=== PATIENT | female | born 1990 | race Caucasian/White ===

== ENCOUNTER 2021-06-06 07:34 | Outpatient (REF) | payer OTHER, SELFPAY ==
[2021-06-06 11:53] LABS: MANUAL DIFF FLAG NO
[2021-06-06 11:54] LABS: Basophils Absolute Auto 0.1 X10*3/uL (0.0-0.2); Basophils Percent Auto 0.9 % (0-2); Eosinophils Absolute Auto 0.3 X10*3/uL (0.0-0.4); Eosinophils Percent Auto 3.7 % (0-4); Hematocrit 39.7 % (37-47); Hemoglobin 12.9 g/dl (12.0-16.0); Imm Gran Abs Auto 0.02 X10*3/uL (0.00-0.03); Imm Gran Pct Auto 0.3 % (0.0-0.4); Lymphocytes Absolute Auto 2.9 X10*3/uL (1.2-4.9); Lymphocytes Percent Auto 41.4 % (20-40); Mean Corpuscular HGB Conc 32.5 g/dl (31.0-35.0); Mean Corpuscular Hemoglobin 29.2 pg (27.0-33.0); Mean Corpuscular Volume 89.8 fL (80-98); Mean Platelet Volume 10.5 fL (9.4-12.3); Monocytes Absolute Auto 0.6 X10*3/uL (0.1-1.2); Monocytes Percent Auto 7.9 % (2-11); Neutrophils Absolute Auto 3.2 X10*3/uL (2.0-8.3); Neutrophils Percent Auto 45.8 % (45-73); Platelet Count 355 X10*3/uL (160-400); Red Blood Count 4.42 X10*6/uL (4.20-5.50); Red Cell Distribution Width 13.3 % (11.0-16.0)
[2021-06-06 12:20] LABS: Alanine Aminotransferase 11 U/L (0-31); Albumin Level 4.3 g/dL (3.5-5.0); Alkaline Phosphatase 67 U/L (39-117); Anion Gap 14 (12-20); Aspartate Amino Transferase 18 U/L (5-31); Bilirubin Total 0.6 mg/dL (0.0-1.0); Blood Urea Nitrogen 11 mg/dL (9-16); Calcium 9.4 mg/dL (8.4-10.2); Carbon Dioxide 24 mmol/L (22-29); Chloride 105 mmol/L (96-108); Cholesterol 184 mg/dL; Estimated Glomerular Filt Rate > 60; Glucose Fasting 79 mg/dL (60-99); HDL Cholesterol 52 mg/dL; LDL Cholesterol Calculated 95 mg/dl; Potassium 4.3 mmol/L (3.3-5.1); Sodium 139 mmol/L (135-145); Total Protein 7.5 g/dL (6.5-8.0); Triglycerides 185 mg/dL
[2021-06-06 12:43] LABS: TSH reflex Free T4 1.85 uIU/mL (0.32-4.0)
[2021-06-11 13:41] LABS: Vitamin D 25-OH, D2 <4 ng/mL; Vitamin D 25-OH, D3 31 ng/mL; Vitamin D 25-OH, Total 31 ng/mL (30-100)
== END 2021-06-06 07:35 | disposition home or self-care (01) ==
LOC: HO.HMGCLDS 07:34
PROVIDERS: PCP Internal Medicine; Visit Provider Internal Medicine
DX: E66.9 Obesity, unspecified (principal); E78.5 Hyperlipidemia, unspecified; E55.9 Vitamin D deficiency, unspecified
CPT/HCPCS: 36415; 80053; 80061; 82306; 84443; 85025

== ENCOUNTER 2021-07-06 14:07 | Outpatient (REF) | payer OTHER, SELFPAY ==
--- NOTE | ~2021-07-06 | US_ITS ---
EXAMINATION: US PELVIC AND TRANSVAGINAL CLINICAL INFORMATION: Pelvic pain. COMPARISON: None TECHNIQUE: Transabdominal and transvaginal pelvic ultrasound. Real-time imaging by the senior biostatistician/group leader. FINDINGS: The uterus is 9.5 x 3.7 x 4.8 cm, retroverted, retroflexed. The endometrial thickness is measured by the senior biostatistician/group leader at 1 cm. The right ovary is 3.8 x 2 x 2.6 cm, volume 10 mL. Simple-appearing cyst 1.6 x 1.6 x 1.1 cm is noted. The left ovary is 2.4 x 1.3 x 1.7 cm. No suspicious finding. Small follicles are noted. The ovarian vascularity is within normal limits. There is no free fluid. US/US pelvic and transvaginal IMPRESSION: Endometrial thickness 1 cm may be normal for mid to late phase of the cycle in this young patient. Small, simple-appearing 1.6 cm cyst associated with the right ovary.
== END 2021-07-06 14:08 | disposition home or self-care (01) ==
LOC: HO.HMGCX 14:07
PROVIDERS: PCP Internal Medicine; Visit Provider Internal Medicine
DX: R10.2 Pelvic and perineal pain (principal)
CPT/HCPCS: 76830; 76856

== ENCOUNTER 2022-02-24 18:44 | Outpatient (REF) | payer OTHER, SELFPAY ==
--- NOTE | ~2022-02-24 | MR_ITS ---
EXAMINATION: MR BRAIN WITHOUT CONTRAST CLINICAL INFORMATION: Migraines. COMPARISON: None. TECHNIQUE: Multiplanar, multisequence imaging of the brain was performed without contrast. FINDINGS: No diffusion abnormalities are identified to suggest an acute or subacute infarct. The ventricles are normal in size. No mass effect or midline shift is seen. No brain parenchymal signal abnormality is noted. No extra-axial fluid collections are seen. The brainstem and cerebellum are normal. The gradient refocused acquisition is normal. The craniovertebral junction, marrow signal, and midline structures are normal. The major intracranial flow voids at the level of the [place] of [place] are preserved. The dural venous sinus flow voids are maintained. The mastoid air cells and paranasal sinuses are well aerated. MR/MR head/brain wo con IMPRESSION: Normal MRI of the brain. No acute process.
== END 2022-02-24 18:45 | disposition home or self-care (01) ==
LOC: HO.MRI 18:44
PROVIDERS: PCP Internal Medicine; Visit Provider Internal Medicine
DX: G43.909 Migraine, unspecified, not intractable, without status migrainosus (principal)
CPT/HCPCS: 70551

== ENCOUNTER 2023-01-14 13:53 | Outpatient (REF) | payer OTHER, SELFPAY ==
[2023-01-14 17:37] LABS: Erythrocyte Sedimentation Rate 16 MM/HR (0-20)
== END 2023-01-14 13:54 | disposition home or self-care (01) ==
LOC: HO.HMGCLDS 13:53
PROVIDERS: PCP Internal Medicine; Visit Provider Internal Medicine
DX: H57.10 Ocular pain, unspecified eye (principal)
CPT/HCPCS: 36415; 85652

== ENCOUNTER 2023-02-04 16:34 | Outpatient (REF) | payer OTHER, SELFPAY ==
--- NOTE | ~2023-02-04 | XR_ITS ---
EXAMINATION: XR CERVICAL SPINE CLINICAL INFORMATION: 32-year-old female patient with myalgias of the neck. COMPARISON: None TECHNIQUE: 6 views of the cervical spine, inclusive of flexion and extension views, were obtained. FINDINGS: The vertebral alignment is normal. No intrinsic bony abnormality. The disc heights and neural foramina are well maintained. The endplates and posterior elements are normal. No fracture or subluxation. The surrounding prevertebral soft tissues are unremarkable. XR/XR cervical spine 5V IMPRESSION: Unremarkable examination.
== END 2023-02-04 16:35 | disposition home or self-care (01) ==
LOC: HO.XRAY 16:34
PROVIDERS: PCP Internal Medicine; Visit Provider Student in an Organized Health Care Education/Training Program
DX: M79.12 Myalgia of auxiliary muscles, head and neck (principal)
CPT/HCPCS: 72050

== ENCOUNTER 2023-02-18 13:22 | Outpatient (REF) | payer OTHER, SELFPAY ==
--- NOTE | ~2023-02-18 | MM_ITS ---
EXAMINATION: MM DIAGNOSTIC DIGITAL BREAST TOMOSYNTHESIS, BILATERAL Targeted right breast ultrasound. CLINICAL INFORMATION: Right breast pain for one week upper outer quadrant. Patient had one week of antibiotics finishing yesterday to treat possible mastitis. Pain has improved but has not gone away. Initially patient had small region of inflamed skin which has gone away since on the antibiotics. The lifetime risk of breast cancer based on the Tyrer-Cuzick Model is 11.7%. COMPARISON: Mammography: None TECHNIQUE: Digital breast tomosynthesis is performed in both the craniocaudal and mediolateral oblique views along with computer-aided detection (CAD). Synthesized 2D images are generated from the tomosynthesis. Additional spot magnification views of the right breast in craniocaudal and 90 degree mediolateral views performed. FINDINGS: The breasts are heterogeneously dense, which may obscure small masses (ACR BI-RADS breast composition Category c). There is multiplicity and bilaterality of calcifications right greater than left. There are some focally more dense parenchyma within the right breast in the upper outer quadrant in region of patient's pain. There is also increase in number of calcifications in this location. No suspicious left breast masses or grouping of calcifications identified. Magnification views of the right breast demonstrates some of the calcifications to appear to change in appearance from punctate and rounded on craniocaudal projection to a few being more linear on 90 degree mediolateral view which may represent milk of calcium and microcysts, however this is not seen in all of the calcifications. Ultrasound evaluation of the right breast in region of pain did not demonstrate any abnormal cystic or solid masses. No region of abnormal distal sound shadowing was appreciated. No definite edematous change within the parenchyma is seen. No abscess noted. There is a hypoechoic well-circumscribed cystic-appearing lesion 9 o'clock position in region where patient says that there was redness previously. This measures approximately 8 x 3 x 5 mm in size with smooth back wall and increased through sound transmission. The lesion is wider than it is tall. No internal vascularity is present. Results are discussed with the patient at time of visit. MM/MM tomosynthesis diagnostic BI IMPRESSION: Region of increased density as well as calcifications upper outer aspect of the right breast with some calcifications appearing to change morphology between craniocaudal and 90 degree mediolateral views. Patient states that the redness on the skin and pain has improved but not gone away. Sometimes mastitis can cause calcifications to develop. Recommend 6 month follow-up right breast mammography including magnification views. ASSESSMENT: BI-RADS 3: Probably Benign RECOMMENDATION: Diagnostic mammography in 6 months. This patient's information was entered into a reminder system with a target due date for their next mammogram.
== END 2023-02-18 13:23 | disposition home or self-care (01) ==
LOC: HO.MAMMO 13:22
PROVIDERS: Visit Provider Internal Medicine
DX: N61.0 Mastitis without abscess (principal)
CPT/HCPCS: 76642; 77062; 77066

== ENCOUNTER 2023-03-19 09:31 | Outpatient (REF) | payer OTHER, SELFPAY ==
[2023-03-19 11:20] LABS: Alanine Aminotransferase 9 U/L (0-31); Albumin Level 4.3 g/dL (3.5-5.0); Alkaline Phosphatase 69 U/L (39-117); Anion Gap 11 (12-20); Aspartate Amino Transferase 13 U/L (5-31); Bilirubin Total 0.8 mg/dL (0.0-1.0); Blood Urea Nitrogen 14 mg/dL (9-16); Calcium 9.2 mg/dL (8.4-10.2); Carbon Dioxide 26 mmol/L (22-29); Chloride 107 mmol/L (96-108); Cholesterol 193 mg/dL; Estimated Glomerular Filt Rate > 60; Glucose Fasting 84 mg/dL (60-99); HDL Cholesterol 50 mg/dL; LDL Cholesterol Calculated 124 mg/dl; Potassium 4.4 mmol/L (3.3-5.1); Sodium 140 mmol/L (135-145); Total Protein 7.1 g/dL (6.5-8.0); Triglycerides 96 mg/dL
[2023-03-19 11:38] LABS: Thyroid Stimulating Hormone 1.13 uIU/mL (0.32-4.0)
== END 2023-03-19 09:32 | disposition home or self-care (01) ==
LOC: HO.LAB 09:31
PROVIDERS: PCP Internal Medicine; Visit Provider Internal Medicine
DX: Z00.00 Encounter for general adult medical examination without abnormal findings (principal); E66.9 Obesity, unspecified
CPT/HCPCS: 36415; 80053; 80061; 84443

== ENCOUNTER 2023-07-07 16:39 | Outpatient (AMB) | payer OTHER, SELFPAY ==
[2023-07-07 17:02] VITALS: BP 122/88; PULSE 75; O2SAT 96; BMI 35.2
--- NOTE | 2023-07-07 17:02 | MHC.PC.OV ---
Vital Signs 07/07/23 17:02 Height 5 ft Weight 180 lb 8 oz BMI 35.2 BP 122/88 Blood Pressure Location Lt brachial Position Sitting Pulse 75 Pulse Source Pulse Oximeter Pulse Oximetry (%) 96 Intake Visit Reasons: Continuous right breast pain Intake Note: Pt is here for right breast pain with discharge since last month. Right knee pain for one month as well. Contact Lens Assistant Required: No Accompanied by: Self / Same As Patient Allergies Sulfa (Sulfonamide Antibiotics) Allergy (Intermediate, Verified 07/07/23 17:08) hives topiramate Adverse Reaction (Intermediate, Verified 07/07/23 17:08) eye changes Medication List - Last Reconciled 07/07/23 by Tami Brown MD sumatriptan succinate 50 mg PO Q2-4H PRN 30 days Tobacco use date assessed: 02/17/23 Dental Screening Dental Screen Date: 07/07/23 Did you have a dental visit in the last 12 months?: Yes Did you have a dental problem in the last 6 months where you did not have access to dental care?: No Was dental information given to patient?: Patient has dentist HPI HPI Comments History of Present Illness Details This is a 32-year-old female with migraines that complains of right knee pain and right breast pain with discharge that started about 2 months ago. She denies any knee injury and knee pain has progressively worsened for the past few weeks. She also has breast pain associated with her menstrual periods and she does not male the color of the breast discharge from the right breast. She denies any visual field deficit. Migraines stable with sumatriptan as needed. [facility] Medical History (Updated 07/07/23 @ 17:14 by Tami Brown MD) Acne Immunization due Migraines Obese Pelvic pain in female Physical exam Surgical History History of wisdom tooth extraction Family History Father History of mitral valve repair Mother Hypothyroid Maternal Grandmother Diabetes Hypertension Paternal Grandfather CVD (cardiovascular disease) Brother In good health Brother In good health Sister In good health Son In good health Social History Housing: Apartment Alcohol intake: never Patient Tobacco Use Status: Never used Tobacco e-Cigarette/Vaping Use: Never Used Second Hand Smoke Exposure: No service: No Current occupational status: employed Current occupational exposures/hazards: No Cognitive needs: No Hearing needs: No Vision needs: No Questionnaire Thrive Questionnaire Date Thrive assessed: 02/17/23 HERNÁN-7 AMB Questionnaire HERNÁN-7 Date HERNÁN - 7 assessed: 02/17/23 Source: Developed by Drs. Aidan Dwyer, Krystle Ma, Abiel Tavera and colleagues, with an educational julio c from [employer]. Review of Systems Const All systems reviewed & are unremarkable except as noted in HPI and below Eyes Reports no additional complaints, Denies change in vision and Denies other visual disturbances Card Denies chest pain at rest, Denies chest pain with activity, Denies edema, Denies irregular heart rhythm, Denies claudication, Denies dyspnea, Denies dyspnea on exertion, Denies orthopnea, Denies paroxysmal nocturnal dyspnea and Denies slow heart rate Resp Denies cough, Denies dyspnea and Denies dyspnea on exertion GI Denies abdominal pain, Denies change in bowel habits, Denies excessive flatus, Denies nausea and Denies vomiting Reports nipple discharge, Denies urinary incontinence, Denies urinary hesitancy and Denies urinary urgency Musc Denies abnormal gait, Denies atrophy, Denies deformity and Denies limited range of motion Skin/Breast Denies bleeding lesions, Denies changing lesions, Reports nipple discharge and Denies rash Neuro Denies abnormal gait and Denies lack of coordination Physical exam (Primary Care) Vital Signs: Last Vital Signs Pulse 75 07/07/23 17:02 BP 122/88 07/07/23 17:02 Pulse Ox 96 07/07/23 17:02 BMI result Body Mass Index 35.2 Tobacco/Smoking Status: Tobacco use Status Tobacco use date assessed 02/17/23 07/07/23 17:06 Patient Tobacco Use Status Never used Tobacco 07/07/23 17:06 e-Cigarette/Vaping Use Never Used 07/07/23 17:06 Thrive Assessment: Date of Thrive Assessment Date Thrive assessed 02/17/23 07/07/23 17:06 Eyes General: appearance normal, both eyes and all related structures Eyelids: Yes eyelids normal Conjunctivae: conjunctivae normal Neck Neck: Yes normal visual inspection and Yes supple Chest Breast/axilla inspection: normal inspection of the breasts and normal inspection of the axillae Breast/axilla palpation: normal palpation of the breasts and normal palpation of the axillae Resp Effort & Inspection: normal respiratory effort Auscultation: clear to auscultation bilaterally Cardio Jugular venous distension: no JVD Rate: regular rate Rhythm: regular rhythm Heart sounds: S1 normal heart sound present and S2 normal heart sound present Extrem General: Yes full ROM Assessment and Plan Assessment & Plan (1) Breast discharge: Code(s): N64.52 - Nipple discharge Plan: Prolactin ordered. Has mammogram in August. (2) Right knee pain: Code(s): M25.561 - Pain in right knee Plan: X-ray ordered (3) Migraines: Code(s): G43.909 - Migraine, unspecified, not intractable, without status migrainosus Qualifiers: Migraine type: without aura Status migrainosus presence: without status migrainosus Intractability: not intractable Qualified Code(s): G43.009 - Migraine without aura, not intractable, without status migrainosus Plan: Continue sumatriptan as needed Orders: Orders XR knee RT 2V 07/07/23 M25.561 - Pain in right knee Prolactin 07/07/23 N64.52 - Nipple discharge PT Evaluation and Treatment 07/07/23 M25.561 - Pain in right knee Coding Level of Care Code Est Pt Level 3 (52771) Diagnoses Breast discharge N64.52 Right knee pain M25.561 Migraines G43.009 Migraine type: without aura Status migrainosus presence: without status migrainosus Intractability: not intractable Time Spent (min) 19
== END 2023-07-07 17:15 | disposition home or self-care (01) ==
PROVIDERS: PCP Internal Medicine; Visit Provider Internal Medicine
DX: N64.52 Nipple discharge (principal); M25.561 Pain in right knee; G43.009 Migraine without aura, not intractable, without status migrainosus
CPT/HCPCS: 99213

== ENCOUNTER 2023-07-12 10:44 | Outpatient (REF) | payer OTHER, SELFPAY ==
--- NOTE | ~2023-07-12 | XR_ITS ---
EXAMINATION: XR KNEE, RIGHT CLINICAL INFORMATION: Right knee pain COMPARISON: None available. TECHNIQUE: Four views of the right knee. FINDINGS: Mild medial knee joint narrowing, otherwise joint spaces are maintained. No fracture or joint effusion. Alignment is anatomic. No abnormal soft tissue calcification. XR/XR knee RT 4V IMPRESSION: No acute bony pathology.
[2023-07-12 14:22] LABS: Thyroid Stimulating Hormone 1.73 uIU/mL (0.32-4.0)
[2023-07-13 09:15] LABS: Prolactin 6.2 ng/mL
== END 2023-07-12 10:45 | disposition home or self-care (01) ==
LOC: HO.HMGCLDS 10:44
PROVIDERS: PCP Internal Medicine; Visit Provider Internal Medicine
DX: M25.561 Pain in right knee (principal); N64.52 Nipple discharge; E66.9 Obesity, unspecified
CPT/HCPCS: 36415; 73564; 84146; 84443

== ENCOUNTER 2023-09-12 09:24 | Outpatient (REF) | payer OTHER, SELFPAY ==
--- NOTE | ~2023-09-12 | US_ITS ---
EXAMINATION: MM DIAGNOSTIC DIGITAL BREAST TOMOSYNTHESIS, RIGHT US BREAST LIMITED, RIGHT MAMMOGRAPHY: CLINICAL INFORMATION: 6 month follow-up right breast calcifications. 32-year-old female. COMPARISON: Mammography: Baseline examination 02/18/2023. TECHNIQUE: Digital breast tomosynthesis is performed in the following views: Full-field digital 3-D right CC and right MLO views, as well as right ML view. In addition, 3-D spot compression right CC view was performed, as well as 2-D spot magnification right CC and ML views. FINDINGS: The breasts are heterogeneously dense, which may obscure small masses (ACR BI-RADS breast composition Category c). There are regional calcifications throughout the dense right breast stroma, the majority of which appear to layer on the mediolateral 90 degree right magnification view, indicating these are most likely benign milk of calcium layering within microcysts. These are essentially stable without significant change from prior examinations. These remain probably benign. In addition, there is a new oval 8 mm low-density circumscribed mass in the right breast, approximately 1:00 axis, 8 cm from the nipple, which will be evaluated by subsequent ultrasound as below. Otherwise, parenchymal pattern is unchanged from the prior exam. No suspicious developing masses, regions of architectural distortion, or suspicious or aggressive change in the appearance of the calcifications. ULTRASOUND: CLINICAL INFORMATION: 6 month follow-up right breast calcifications, with new 8mm low density oval circumscribed mass in the right breast approximately 1:00 axis. COMPARISON: None relevant. Correlation made with mammography same day. TECHNIQUE: Targeted sonographic evaluation right breast was performed using a high frequency linear transducer. Attention to the 1:00 axis was given. Selected archived documentation. FINDINGS: RIGHT BREAST: Within the 1:00 axis of the right breast, 8 cm from the nipple, there is a bilobed 7 x 6 x 3 mm simple cysts, correlating well with the mammographic focus of concern. This is benign. Also in the 1:00 axis, 6 cm from the nipple, there is an additional 6 mm simple cyst, not well seen on mammography but likely within the dense breast stroma. There are no suspicious findings, solid masses, or edema within the soft tissue planes. US/US breast RT limited mamm only IMPRESSION: 1. Probably benign and stable regional calcifications, the majority of which layer on the 90 degree mediolateral view, consistent with milk of calcium. These remain probably benign, and 6 month interval follow-up mammography to include standard magnification views recommended of both breasts. 2. 2 benign cysts as detailed within the right breast at the 1:00 axis, for which no further follow-up recommended. OVERALL ASSESSMENT: Mammography: BI-RADS 3 - Probably benign finding(s) - 6 month follow-up suggested Ultrasound: BI-RADS 3 - Probably benign finding(s) - 6 month follow-up suggested RECOMMENDATION: 6 Month F/U Results were provided to the patient at time of visit by the technologist. This patient's information was entered into a reminder system with a target due date for their next mammogram.
== END 2023-09-12 09:25 | disposition home or self-care (01) ==
LOC: HO.MAMMO 09:24
PROVIDERS: PCP Internal Medicine; Visit Provider Internal Medicine
DX: R92.1 Mammographic calcification found on diagnostic imaging of breast (principal)
CPT/HCPCS: 76642; 77061; 77065

== ENCOUNTER → 2023-09-12 09:30 | Outpatient (BNV) | payer OTHER, SELFPAY | PROVIDERS: PCP Internal Medicine; Visit Provider Radiology Diagnostic Radiology | DX: R92.1 Mammographic calcification found on diagnostic imaging of breast (principal); N63.12 Unspecified lump in the right breast, upper inner quadrant | CPT/HCPCS: 76642; 77061; 77065 ==

== ENCOUNTER 2023-10-27 13:53 | Outpatient (AMB) | payer OTHER, SELFPAY ==
--- NOTE | 2023-10-27 13:59 | A.OFFVIS_ITS ---
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 The patient states that her symptoms have gotten worse over the last year in spite of continued non operative treatments. She has done physical therapy for 12 weeks over the last 6 months as well as for 6 weeks over the last 3 months which aggravated her pain. She states that her right knee will give out several times per day. She has tried Tylenol and anti-inflammatory medicines which gave her minimal relief. Allergies Sulfa (Sulfonamide Antibiotics) Allergy (Intermediate, Verified 10/27/23 14:04) hives topiramate Adverse Reaction (Intermediate, Verified 10/27/23 14:04) eye changes Medication List - Last Reconciled 10/27/23 by Paulo Boo MD sumatriptan succinate 50 mg PO Q2-4H PRN 30 days PFS Medical History Acne Immunization due Migraines Obese Pelvic pain in female Physical exam Surgical History History of wisdom tooth extraction Family History Father History of mitral valve repair Mother Hypothyroid Maternal Grandmother Diabetes Hypertension Paternal Grandfather CVD (cardiovascular disease) Brother In good health Brother In good health Sister In good health Son In good health Social History Housing: Apartment Alcohol intake: never Patient Tobacco Use Status: Never used Tobacco e-Cigarette/Vaping Use: Never Used Second Hand Smoke Exposure: No service: No Current occupational status: employed Current occupational exposures/hazards: No Cognitive needs: No Hearing needs: No Vision needs: No Physical Exam Vital Signs: BMI result Body Mass Index 35.2 Const Other: Well-nourished well-developed very friendly female awake alert and oriented x3 in no acute distress Extrem Other: Bilateral lower extremity examination shows good capillary refill, no skin lesions noted, normal sensation light touch Right knee examination shows a minimal effusion, no crepitus with range of motion, tenderness along her medial joint line, positive Giuliana's test, no instability Results Reviewed Results Reviewed: Standing full weight-bearing x-rays of the patient's right knee show minimal joint space narrowing, no acute bony abnormalities Assessment & Plan Assessment & Plan (1) Right knee pain: Code(s): M25.561 - Pain in right knee Plan Ms. Wasserman presents with right knee pain and mechanical symptoms most likely due to a tear of her medial meniscus. Thus, I will send the patient for an MRI of her right knee for further evaluation. I will see her back once the MRI is completed to discuss the findings and treatment options. I also gave her a prescription for a Medrol Dosepak to help with her symptoms in the meantime. Feel free to call me at any time should questions regarding her orthopedic management arise. Thank you very much for asking me to see this very friendly patient. I spent 22 minutes in reviewing the patient's records and imaging studies, seeing the patient and documenting in the medical record. Orders: Orders MR knee RT wo con Today M25.561 - Pain in right knee Medications: New methylprednisolone (Medrol (Chente)) PO PER PKG DIR 21 ea 0RF Coding Level of Care Code New Pt Level 2 (48295) Diagnoses Right knee pain M25.561
[2023-10-27 14:04] VITALS: BMI 35.2
== END 2023-10-27 14:27 | disposition home or self-care (01) ==
PROVIDERS: PCP Internal Medicine; Visit Provider Orthopaedic Surgery
DX: M25.561 Pain in right knee (principal)
CPT/HCPCS: 99202

== ENCOUNTER → 2023-10-27 13:53 | Outpatient (BNVA) | payer OTHER, SELFPAY | PROVIDERS: PCP Internal Medicine; Visit Provider Orthopaedic Surgery | DX: M25.561 Pain in right knee (principal) | CPT/HCPCS: 99202 ==

== ENCOUNTER 2023-12-30 17:33 | Outpatient (REF) | payer OTHER, SELFPAY ==
--- NOTE | ~2023-12-30 | MR_ITS ---
EXAMINATION: MR KNEE WITHOUT CONTRAST, RIGHT CLINICAL INFORMATION: Right knee pain and swelling. Limited range of motion. COMPARISON: Right knee radiographs dated 07/12/2023. TECHNIQUE: MRI of the knee without contrast was performed using routine sequences on a high-field scanner. FINDINGS: MENISCI: Medial Meniscus: Intact Lateral Meniscus: Intact LIGAMENTS: Cruciate: Intact Collateral: Intact EXTENSOR MECHANISM: Intact ARTICULAR CARTILAGE/BONE: Patellofemoral Compartment: Intact articular cartilage. Medial Compartment: Minimal weightbearing articular cartilage signal heterogeneity. Lateral Compartment: Intact articular cartilage. JOINT FLUID AND BURSAE: Trace joint fluid. Minimal edema within the distal pes anserine bursa which could represent normal variation versus minimal bursitis. Correlate for focal tenderness. MR/MR knee RT wo con IMPRESSION: 1. No acute meniscal or ligamentous injury. 2. Minimal medial compartment arthrosis. 3. Trace joint fluid. Minimal edema within the distal pes anserine bursa which could represent normal variation versus minimal bursitis. Correlate for focal tenderness.
== END 2023-12-30 17:34 | disposition home or self-care (01) ==
LOC: HO.MRI 17:33
PROVIDERS: PCP Internal Medicine; Visit Provider Orthopaedic Surgery
DX: M25.561 Pain in right knee (principal)
CPT/HCPCS: 73721

== ENCOUNTER 2024-01-23 14:38 | Outpatient (AMB) | payer OTHER, SELFPAY ==
[2024-01-23 14:40] VITALS: BMI 35.2
--- NOTE | 2024-01-23 14:40 | MHC.OFFVIS ---
Intake Vital Signs 01/23/24 14:40 Height 5 ft Weight 180 lb BMI 35.2 Intake Visit Reasons: OV - right knee MRI review Intake Note: Rhea is a 33 year old female who presents for an MRI review of her Right knee. The patient describes her discomfort as achy in nature. Most of the discomfort is along the anterior aspect of her knee. The patient did take the Medrol Dosepak which gave her mild relief. She denies any locking or giving way. She has tried topical creams which gave her mild relief. Allergies Sulfa (Sulfonamide Antibiotics) Allergy (Intermediate, Verified 10/27/23 14:04) hives topiramate Adverse Reaction (Intermediate, Verified 10/27/23 14:04) eye changes Medication List - Last Reconciled 01/23/24 by Paulo Boo MD methylprednisolone (Medrol (Chente)) PO PER PKG DIR sumatriptan succinate 50 mg PO Q2-4H PRN 30 days PFSH Medical History Physical exam Immunization due Pelvic pain in female Acne Migraines Obese Surgical History History of wisdom tooth extraction Family History Father History of mitral valve repair Mother Hypothyroid Maternal Grandmother Diabetes Hypertension Paternal Grandfather CVD (cardiovascular disease) Brother In good health Brother In good health Sister In good health Son In good health Social History Housing: Apartment Alcohol intake: never Patient Tobacco Use Status: Never used Tobacco e-Cigarette/Vaping Use: Never Used Second Hand Smoke Exposure: No service: No Current occupational status: employed Current occupational exposures/hazards: No Cognitive needs: No Hearing needs: No Vision needs: No Physical Exam Vital Signs: BMI result Body Mass Index 35.2 Const Other: Well-nourished well-developed very friendly female awake alert and oriented x3 in no acute distress Extrem Other: Bilateral lower extremity examination shows good capillary refill, no skin lesions noted, normal sensation light touch Right knee examination shows tenderness along her patellar tendon, no medial or lateral joint line tenderness, negative Giuliana's test, no instability Results Reviewed Results Reviewed: MRI of the patient's right knee shows no evidence of meniscus or ligamentous injury, mild swelling along the anterior aspect of her patellar tendon Assessment & Plan Assessment & Plan (1) Right knee pain: Code(s): M25.561 - Pain in right knee Plan Ms. Wasserman presents with right knee discomfort due to patellar tendinitis. I had a lengthy discussion with the patient regarding the treatment options. Activity modifications were discussed at length with the patient. She wishes to hold off on formal physical therapy for now. She will follow up with me on an as-needed basis should her symptoms not plateau at an unacceptable level over the next few months. Feel free to call me at any time should questions regarding her orthopedic management arise. I spent 19 minutes in reviewing the patient's records and imaging studies, seeing the patient and documenting in the medical record. Coding Level of Care Code Est Pt Level 2 (91976) Diagnoses Right knee pain M25.561
== END 2024-01-23 14:57 | disposition home or self-care (01) ==
PROVIDERS: PCP Internal Medicine; Visit Provider Orthopaedic Surgery
DX: M25.561 Pain in right knee (principal)
CPT/HCPCS: 99212

== ENCOUNTER → 2024-01-23 14:38 | Outpatient (BNVA) | payer OTHER, SELFPAY | PROVIDERS: PCP Internal Medicine; Visit Provider Orthopaedic Surgery | DX: M25.561 Pain in right knee (principal) | CPT/HCPCS: 99212 ==

== ENCOUNTER 2024-03-28 10:55 | Outpatient (REF) | payer SELFPAY ==
--- NOTE | ~2024-03-28 | MM_ITS ---
EXAMINATION: MM DIAGNOSTIC DIGITAL BREAST TOMOSYNTHESIS, BILATERAL CLINICAL INFORMATION: 6 month follow-up right breast calcifications, regional, probably benign. Patient also due for bilateral screening. COMPARISON: Mammography: 09/12/2023, 02/18/2023 (baseline). TECHNIQUE: Digital breast tomosynthesis is performed in both the craniocaudal and mediolateral oblique views along with computer-aided detection (CAD). Synthesized 2D images are generated from the tomosynthesis. In addition, 2-D spot magnification right CC and ML views were obtained. FINDINGS: The breasts are heterogeneously dense, which may obscure small masses (ACR BI-RADS breast composition Category c). There are regional calcifications throughout the dense right breast stroma, the majority of which appear to layer on the mediolateral 90 degree right magnification view, indicating these are most likely benign milk of calcium layering within microcysts. These are essentially stable without significant change from prior examinations. These remain probably benign. There are otherwise no suspicious masses or areas of architectural distortion in either breast. The parenchymal pattern is stable from prior exams. MM/MM tomosynthesis diagnostic BI IMPRESSION: -There are no significant changes from prior study. No findings suspicious for malignancy. -Probably benign regional calcifications right breast, which layer on the 90 degree projection, suggesting milk of calcium. No aggressive changes. These are suitable for follow-up in one year to establish a two-year stability. ASSESSMENT: BI-RADS BI-RADS 3 - Probably benign finding(s) - 12 month follow-up suggested RECOMMENDATION: 12 month diagnostic follow up Results were provided to the patient at time of visit by the technologist. This patient's information was entered into a reminder system with a target due date for their next mammogram.
== END 2024-03-28 10:56 | disposition home or self-care (01) ==
LOC: HO.MAMMO 10:55
PROVIDERS: PCP Internal Medicine; Visit Provider Internal Medicine
DX: R92.1 Mammographic calcification found on diagnostic imaging of breast (principal)
CPT/HCPCS: 77062; 77066

== ENCOUNTER → 2024-03-28 11:00 | Outpatient (BNV) | payer SELFPAY | PROVIDERS: PCP Internal Medicine; Visit Provider Radiology Diagnostic Radiology | DX: R92.1 Mammographic calcification found on diagnostic imaging of breast (principal) | CPT/HCPCS: 77062; 77066 ==

== ENCOUNTER 2024-09-11 08:08 | Outpatient (AMB) | payer OTHER, SELFPAY ==
--- NOTE | 2024-09-11 08:14 | MHC.OFFWIV ---
Intake Vital Signs 09/11/24 08:16 Height 5 ft Weight 175 lb BMI 34.2 BP 110/80 Blood Pressure Location Rt brachial Position Sitting Pulse 78 Pulse Source Pulse Oximeter Temp 98.7 F Temp Source Oral Pulse Oximetry (%) 98 Oxygen Delivery Method Room Air Intake Visit Reasons: EP Sore throat, ear pain Intake Note: Patient here for sore throat and ear pain that have been present for about 2 days. Patient Tobacco Use Status: Never used Tobacco Allergies Sulfa (Sulfonamide Antibiotics) Allergy (Intermediate, Verified 09/11/24 08:16) hives topiramate Adverse Reaction (Intermediate, Verified 09/11/24 08:16) eye changes Do you need a note to return to daycare/school/sports/work: Yes HPI HPI Comments History of Present Illness Details 33 y/o female patient who presents to the walk in clinic with c/o sore-throat and bilateral ear pressure x 2 days now. Denies any fevers, chills, nausea or vomiting. Denies coughing or chest tightness. 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 [facility] Medical History Physical exam Immunization due Pelvic pain in female Acne Migraines Obese Surgical History History of wisdom tooth extraction Family History Father History of mitral valve repair Mother Hypothyroid Maternal Grandmother Diabetes Hypertension Paternal Grandfather CVD (cardiovascular disease) Brother In good health Brother In good health Sister In good health Son In good health Social History Housing: Apartment Alcohol intake: never Patient Tobacco Use Status: Never used Tobacco e-Cigarette/Vaping Use: Never Used Second Hand Smoke Exposure: No service: No Current occupational status: employed Current occupational exposures/hazards: No Cognitive needs: No Hearing needs: No Vision needs: No Review of Systems Const All systems reviewed & are unremarkable except as noted in HPI and below Physical Exam Vital Signs: Last Vital Signs Temp 98.7 F 09/11/24 08:16 Pulse 78 09/11/24 08:16 BP 110/80 09/11/24 08:16 Pulse Ox 98 09/11/24 08:16 Oxygen Delivery Method Room Air 09/11/24 08:16 BMI result Body Mass Index 34.2 Const General: cooperative and no acute distress Nutritional Appearance: overweight Orientation/consciousness: patient oriented x3 HEENT Head: Yes normocephalic Ears: external ears normal and TM abnormal bulging, erythematous and with fluid behind the TM General nose exam: Normal nasal mucous membranes and turbinates present Face and sinus: Yes sinuses nontender Mouth: moist mucous membranes Throat: Yes tonsils normal, Yes uvula midline and Yes other (erythematous mucous membranes. ) Resp Effort & Inspection: normal respiratory effort and able to speak in complete sentences Auscultation: clear to auscultation bilaterally, no crackles, no rales, no rhonchi and no wheezes Cardio Heart sounds: S1 normal heart sound present and S2 normal heart sound present Neuro General: patient oriented x3 Results AMB Rapid Strep AMB Rapid Strep Negative Last Edit by PASCALE Cadlera on 09/11/24 08:35 Assessment & Plan Assessment & Plan (1) Acute pharyngitis: Code(s): J02.9 - Acute pharyngitis, unspecified Qualifiers: Pharyngitis/tonsillitis etiology: unspecified etiology Qualified Code(s): J02.9 - Acute pharyngitis, unspecified Plan: Rapid Strep negative Home remedies Warm Tea with honey Medications: New benzocaine-menthol 6-10 mg (Chloraseptic Sore Throat) 1 nereida mucous membrane Q2-4H PRN 18 ea 0RF sore throat J02.9 - Acute pharyngitis, unspecified phenol 1.4% (Chloraseptic Throat [place]) 4 sprays mucous membrane Q4H 20 mL 0RF J02.9 - Acute pharyngitis, unspecified pseudoephedrine HCl ER (Sudafed 12 Hour) 120 mg PO Q12H 90 tabs 0RF J02.9 - Acute pharyngitis, unspecified Coding Level of Care Code Est Pt Level 3 (18483) Diagnoses Acute pharyngitis, unspecified etiology J02.9 Pharyngitis/tonsillitis etiology: unspecified etiology Time Spent (min) 15
[2024-09-11 08:16] VITALS: BP 110/80; PULSE 78; TEMP 37.1; O2SAT 98; BMI 34.2
== END 2024-09-11 08:48 | disposition home or self-care (01) ==
PROVIDERS: PCP Internal Medicine; Visit Provider Nurse Practitioner Family
DX: J02.9 Acute pharyngitis, unspecified (principal); Z13.9 Encounter for screening, unspecified

== ENCOUNTER → 2024-09-11 08:08 | Outpatient (BNVA) | payer OTHER, SELFPAY | PROVIDERS: PCP Internal Medicine; Visit Provider Nurse Practitioner Family | DX: J02.9 Acute pharyngitis, unspecified (principal) | CPT/HCPCS: 87880; 99212 ==

== ENCOUNTER 2024-11-24 11:06 | Outpatient (REF) | payer OTHER, SELFPAY ==
[2024-11-24 14:07] LABS: Thyroid Stimulating Hormone 0.86 uIU/mL (0.32-4.0)
== END 2024-11-24 11:07 | disposition home or self-care (01) ==
LOC: HO.HMGCLDS 11:06
PROVIDERS: PCP Internal Medicine; Visit Provider Internal Medicine
DX: E66.9 Obesity, unspecified (principal)
CPT/HCPCS: 36415; 84443

== ENCOUNTER 2024-11-29 15:46 | Outpatient (AMB) | payer OTHER, SELFPAY ==
--- NOTE | 2024-11-29 15:52 | A.OFFPC_ITS ---
Vital Signs 11/29/24 16:05 Height 5 ft Weight 177 lb 4 oz BMI 34.6 BP 132/70 Blood Pressure Location Lt brachial Position Sitting Pulse 84 Pulse Source Pulse Oximeter Pulse Oximetry (%) 100 Oxygen Delivery Method Room Air Intake Visit Reasons: Physical Exam Intake Note: Patient is here today for a physical. Drill Grinder Required: No Accompanied by: Self / Same As Patient Allergies Sulfa (Sulfonamide Antibiotics) Allergy (Intermediate, Verified 11/29/24 16:16) hives topiramate Adverse Reaction (Intermediate, Verified 11/29/24 16:16) eye changes Medication List - Last Reconciled 11/29/24 by Tami Brown MD benzocaine-menthol 6-10 mg (Chloraseptic Sore Throat) 1 nereida mucous membrane Q2- 4H PRN phenol 1.4% (Chloraseptic Throat [place]) 4 sprays mucous membrane Q4H pseudoephedrine HCl ER (Sudafed 12 Hour) 120 mg PO Q12H sumatriptan succinate 50 mg PO Q2-4H PRN 30 days Tobacco use date assessed: 11/29/24 Dental Screening Dental Screen Date: 11/29/24 Did you have a dental visit in the last 12 months?: Yes Did you have a dental problem in the last 6 months where you did not have access to dental care?: No Was dental information given to patient?: Patient has dentist HPI HPI Comments History of Present Illness Details The patient is a 34-year-old female presenting for a routine physical exam with concerns regarding an overdue Pap smear test and chronic right knee effusion. The patient reports that the last Pap smear was conducted six years ago; she experiences significant anxiety and discomfort during the procedure due to pelvic muscle clenching. Previously, she has not followed through with the Pap smear due to these difficulties. Concerning her right knee, the patient reports a two-year history of joint effusion, which limits her ability to kneel or fully bend the knee. Previous evaluations indicated the presence of joint fluid without bone abnormalities, and conservative management was recommended without invasive interventions due to infection concerns. The patient has not undergone recent imaging or physical therapy for this issue. - Vaccinations: Up-to-date with Tetanus, Diphtheria, and Pertussis (Tdap), with the next dose due in 2028. Annual influenza vaccination received in August at work. - Screenings: Pap smear overdue by six y ears. - Weight Management: Advised on intermit tent fasting and portion control for weight loss. - Lifestyle: Recommendations for protein and vegetable intake to ensure adequate nutrition. [facility] Medical History Physical exam Immunization due Pelvic pain in female Acne Migraines Obese Surgical History History of wisdom tooth extraction Family History Father History of mitral valve repair Mother Hypothyroid Maternal Grandmother Diabetes Hypertension Paternal Grandfather CVD (cardiovascular disease) Brother In good health Brother In good health Sister In good health Son In good health Social History Housing: Apartment Alcohol intake: never Patient Tobacco Use Status: Never used Tobacco e-Cigarette/Vaping Use: Never Used Second Hand Smoke Exposure: No service: No Current occupational status: employed Current occupational exposures/hazards: No Cognitive needs: No Hearing needs: No Vision needs: No Questionnaire PHQ-9 Over the last 2 weeks, how often have you been bothered by any of the following problems? 1. Little interest or pleasure in doing things: not at all 2. Feeling down, depressed, or hopeless: not at all 3. Trouble falling or staying asleep, or sleeping too much: not at all 4. Feeling tired or having little energy: not at all 5. Poor appetite or overeating: not at all 6. Feeling bad about yourself - or that you are a failure or have let yourself or your family down: not at all 7. Trouble concentrating on things, such as reading the newspaper or watching television: not at all 8. Moving or speaking so slowly that other people could have noticed. Or the opposite - being so fidgety or restless that you have been moving around a lot more than usual: not at all 9. Thoughts that you would be better off or of hurting yourself in some way: not at all Total score: 0 Depression Screening Interpretation: Negative Depression Screening Done: Yes 13313 - PHQ-9 Billing: Yes Source: Developed by Drs. Krystle Villanueva Kurt Kroenke and colleagues, with an educational julio c from [employer]. Thrive Questionnaire Date Thrive assessed: 11/29/24 I am a: Patient What is your living situation today?: I have a steady place to live Within the past 12 months, did the food you bought not last and you didn't have the money to get more?: Never true Within the past 12 months, did you worry whether your food would run out before you got money to buy more?: Never true Do you have trouble paying for medicines?: No Do you have trouble getting transportation to medical appointments?: No Do you have trouble paying your heating and electricity bill?: No Do you have trouble taking care of your child, family member or friend?: No Do you have trouble with day-to-day activities such as bathing, preparing meals, shopping, managing finances, etc.?: No Are you currently unemployed and looking for a job?: No Are you interested in more education?: No Please select the resources that you would like help with: None Currently or been in a relationship where the following occur: No concerns reported THRIVE Score: 0 AUDIT C Alcohol Use Questionnaire (AUDIT-C) 1. How often do you have a drink containing alcohol?: Never 3. How often do you have six or more drinks on one occasion?: Never Total Score: 0 Score Reviewed/Action Taken: No HERNÁN-7 AMB Questionnaire HERNÁN-7 Date HERNÁN - 7 assessed: 11/29/24 Feeling nervous, anxious, or on edge: 0 = Not at all Not being able to stop or control worryin = Not at all Worrying too much about different things: 0 = Not at all Trouble relaxin = Not at all Being so restless that it is hard to sit still: 0 = Not at all Becoming easily annoyed or irritable: 0 = Not at all Feeling afraid as if something awful might happen: 0 = Not at all Total HERNÁN-7 score (0-4 normal; 5-9 mild; 10-14 moderate; 15-21 severe): 0 Source: Developed by Krystle Bhatt Kurt Kroenke and colleagues, with an educational julio c from [employer]. HERNÁN-7 Assessment Billing HERNÁN-7 Assessment Tool: HERNÁN-7 Assessment 28964 Review of Systems Const Details: - Allergies: Reports hives with sulfa drugs and ocular changes with topiramate. - Musculoskeletal: Reports difficulty kneeling and bending the right knee for two years. - Neurological: Reports migraines, managed with sumatriptan. Physical exam (Primary Care) Vital Signs: Last Vital Signs Pulse 84 11/29/24 16:05 BP 132/70 11/29/24 16:05 Pulse Ox 100 11/29/24 16:05 Oxygen Delivery Method Room Air 11/29/24 16:05 BMI result Body Mass Index 34.6 BMI Assessment/Plan discussion: High BMI High, discussed plan: lifestyle, weight reduction, dietary and physical activity Tobacco/Smoking Status: Tobacco use Status Tobacco use date assessed 11/29/24 11/29/24 16:11 Patient Tobacco Use Status Never used Tobacco 11/29/24 15:54 e-Cigarette/Vaping Use Never Used 11/29/24 15:54 PHQ-9: PHQ-9 Score PHQ-9: Total score 0 11/29/24 16:17 Depression Screening Interpretation: Negative Thrive Assessment: Date of Thrive Assessment Date Thrive assessed 11/29/24 11/29/24 15:54 Currently or been in a relationship where the following occur: No concerns reported Const Other: General: Cooperative, healthy appearing, comfortable, no acute distress and well developed Orientation: Patient oriented x3 Limitations: Limited ROM in the right knee, unable to fully bend or kneel Head: Normal to inspection Ears: Hearing grossly normal bilaterally Nose: Normal external nose present Face and sinus: Normal facial exam Eyes: Appearance normal, both eyes and all related structures Neck: Normal visual inspection and Yes full ROM Respiratory: Normal respiratory effort and able to speak in complete sentences. Clear to auscultation bilaterally Cardiovascular: Regular rate and rhythm. Normal S1 and S2 GI: Normal to inspection. Soft to palpation and nontender Skin: No rashes or lesions noted Neuro: Patient oriented x3 Extremities: Limited ROM in the right knee, unable to fully bend or kneel Office Procedures Flu Questionnaire Does the patient have a severe egg allergy?: No Immunizations Fluarix Triv [id number] (PF) 45 mcg (15 mcg x 3)/0.5 mL IM syringe Performing Provider: Tami Brown MD Performing Location: [facility] Documented (not given) by: PASCALE Alatorre on 11/29/24 16:07 Reason Not Given: Received Previously Coding Level of Care Code Est Pt Level 3 (55126) Est Pt Prev Care 18-39y(61460) Diagnoses Physical exam Z00.00 Right knee pain M25.561 Additional Codes HERNÁN-7 Assessment Billing - HERNÁN-7 Assessment Tool: HERNÁN-7 Assessment 95425 ([id number]) PHQ-9 - 83605 - PHQ-9 Billing: Yes ([id number]) Time Spent (min) 35 Assessment & Plan Assessment & Plan (1) Physical exam: Code(s): Z00.00 - Encounter for general adult medical examination without abnormal findings Category: Medical (2) Right knee pain: Code(s): M25.561 - Pain in right knee Category: Medical Plan - Refill sumatriptan 15 mg as needed for migraine management. - Referral to technical support specialist for evaluation of chronic right knee effusion. - Referral for Pap smear to address the overdue screening. - Nutritional counseling to encourage portion control and intermittent fasting for weight management. Patient was informed and verbally consented to the use of an ambient scribe for clinic note documentation during this visit. During the visit, I discussed the necessity of completing an overdue Pap smear and addressed the patient's concerns regarding discomfort. It was emphasized that if the result is normal, the next screening would be in five years. For the chronic right knee effusion, a referral to orthopedic surgery is planned to reassess the condition, considering the persistence of symptoms over two years. An evaluation by a specialist may help in determining any further interventions necessary. I also addressed the patient's migrainous headaches with a plan to continue sumatriptan as the primary treatment, with a reevaluation for any further neurologic concerns if symptoms persist. I reviewed dietary and exercise recommendations, including an intermittent fasting approach and controlling portion sizes to aid in weight loss. Orders: Orders Influenza [id number] Immunization Today Z23 - Encounter for immunization Referrals Orthopedics Referral M25.561 - Pain in right knee DRILL GRINDER Referral Z12.4 - Encounter for screening for malignant neoplasm of cervix Patient Instructions: - Schedule and complete the pap smear as soon as possible. - Follow the referral and visit an technical support specialist for the right knee. - Continue sumatriptan as needed for migraines. - Strengthen dietary habits by portioning meals and incorporating intermittent fasting to facilitate weight loss. - Maintain current immunizations and plan for annual flu vaccination. - Return for follow-up regarding knee condition as needed or upon further symptoms.
[2024-11-29 16:05] VITALS: BP 132/70; PULSE 84; O2SAT 100; BMI 34.6
== END 2024-11-29 16:31 | disposition home or self-care (01) ==
PROVIDERS: PCP Internal Medicine; Visit Provider Internal Medicine
DX: Z00.00 Encounter for general adult medical examination without abnormal findings (principal); M25.561 Pain in right knee; Z23 Encounter for immunization

== ENCOUNTER → 2024-11-29 15:46 | Outpatient (BNVA) | payer OTHER, SELFPAY | PROVIDERS: PCP Internal Medicine; Visit Provider Internal Medicine | DX: Z00.00 Encounter for general adult medical examination without abnormal findings (principal); M25.561 Pain in right knee | CPT/HCPCS: 96127; 99212; 99395 ==

== ENCOUNTER 2024-12-19 07:39 | Outpatient (AMB) | payer OTHER, SELFPAY ==
--- NOTE | 2024-12-19 07:40 | MHC.OFFVIS ---
Vital Signs 12/19/24 07:41 Height 5 ft Weight 177 lb BMI 34.6 Intake Visit Reasons: Right knee pain and giving way Intake Note: Rhea is a 34 year old female who presents for follow up of her right knee pain. The patient reports that she has continued pain in the right knee, pain increases with flexion and kneeling. She takes Motrin and uses lidocane patches with mild relief. The patient states that at times her right knee feels weak. She states that her right knee will give out several times per day. Allergies Sulfa (Sulfonamide Antibiotics) Allergy (Intermediate, Verified 12/19/24 07:41) hives topiramate Adverse Reaction (Intermediate, Verified 12/19/24 07:41) eye changes Medication List - Last Reconciled 12/19/24 by Paulo Boo MD sumatriptan succinate 50 mg PO Q2-4H PRN 30 days [facility] Medical History Physical exam Immunization due Pelvic pain in female Acne Migraines Obese Surgical History History of wisdom tooth extraction Family History Father History of mitral valve repair Mother Hypothyroid Maternal Grandmother Diabetes Hypertension Paternal Grandfather CVD (cardiovascular disease) Brother In good health Brother In good health Sister In good health Son In good health Social History Housing: Apartment Alcohol intake: never Patient Tobacco Use Status: Never used Tobacco e-Cigarette/Vaping Use: Never Used Second Hand Smoke Exposure: No service: No Current occupational status: employed Current occupational exposures/hazards: No Cognitive needs: No Hearing needs: No Vision needs: No Physical Exam Vital Signs: BMI result Body Mass Index 34.6 Const Other: Well-nourished well-developed very friendly female awake alert and oriented x3 in no acute distress Extrem Other: Right knee examination shows a minimal effusion, no crepitus with range of motion, negative Giuliana's test, no instability, tenderness over her patellar tendon Results Reviewed Results Reviewed: MRI of the patient's right knee taken previously shows no evidence of meniscus or ligamentous tearing, no significant degenerative changes, no acute bony abnormalities Assessment & Plan Assessment & Plan (1) Right knee pain: Code(s): M25.561 - Pain in right knee Category: Medical Plan Ms. Wasserman presents with right knee pain due to patellar tendinitis. I had a lengthy discussion with the patient regarding the treatment options. I did have the patient fitted with a knee brace to help with her symptoms of instability. I do feel that the knee brace is a medical necessity to help prevent future falls. She will contact me prior to her follow-up appointment in 2 months should her symptoms worsen in any way. Feel free to call me at any time should questions regarding her orthopedic management arise. I spent 22 minutes in reviewing the patient's records and imaging studies, seeing the patient and documenting in the medical record. Coding Level of Care Code Est Pt Level 3 (16855) Complex EM visit Add On G2211 Diagnoses Right knee pain M25.561
--- OUTSIDE RECORDS SUMMARY | 2024-12-19 07:40 | XMS_ITS | Encounter Summary ---
Author Organization [facility] Address [address] [place] [address] Phone Care Team Providers Care Integrated Specialist Name Role Phone Chelsey Rankin DO Primary Care Provider [phone] Encounter Details Date Type Department Care Team (Late st Contact Info) Description 05/26/2012 Documentation [facility] [address] [place] [address] Family Medicine, Physician [address] [place], [place] [phone] Social History Tobacco Use Types Packs/Day Years Used Date Smoking Tobacco: Never Assessed Comments Unknown Sex and Gender Information Value Date Recorded Sex Assigned at Not on file Legal Sex Female 4:42 PM EDT Gender Identity Not on file Sexual Orientation Not on file documented as of this encounter Plan of Treatment Not on file documented as of this encounter Visit Diagnoses Not on filedocumented in this encounter Care Teams Integrated Specialist Relationship Specialty Start Date End Date Chelsey Rankin DO [address] [place] [address] PCP - General 07/08/17 12/30/21 documented as of this encounter
--- OUTSIDE RECORDS SUMMARY | 2024-12-19 07:40 | XMS_ITS | Encounter Summary ---
Author Organization [facility] Address [address] [place] [phone] Phone Care Team Providers Care Forest Economics Professor Name Role Phone Chelsey Rankin DO Primary Care Provider [phone] Encounter Details Date Type Department Care Team (Late st Contact Info) Description 09/16/2011 Documentation [facility] [place] Family Medicine [address] [place] [address] Family Medicine, Physician [address] [place], [place] [phone] Social History Tobacco Use Types Packs/Day Years [...] on filedocumented in this encounter Care Teams Forest Economics Professor Relationship Specialty Start Date End Date Chelsey Rankin DO [address] [place] [address] PCP - General 07/08/17 12/30/21 documented as of this encounter
--- OUTSIDE RECORDS SUMMARY | 2024-12-19 07:40 | XMS_ITS | Encounter Summary ---
Author Organization [facility] Address [address] [place] [address] Phone Care Team Providers Care Traffic Line Painter Name Role Phone Chelsey Rankin DO Primary Care Provider [phone] Encounter Details Date Type Department Care Team (Late st Contact Info) Description 07/14/2017 Conversion Encounter [facility] [address] [place] [address] Social History Tobacco Use Types Packs/Day Years Used Date Smoking Tobacco: Never Comments:Never smoker Comments Unknown Sex and Gender Information Value Date Recorded Sex Assigned at Not on file Legal Sex Female 4:42 PM EDT Gender Identity Not on file Sexual Orientation Not on file documented as of this encounter Plan of Treatment Not on file documented as of this encounter Visit Diagnoses Not on filedocumented in this encounter Care Teams Traffic Line Painter Relationship Specialty Start Date End Date Chelsey Rankin DO [address] [place] [address] PCP - General 07/08/17 12/30/21 documented as of this encounter
--- OUTSIDE RECORDS SUMMARY | 2024-12-19 07:40 | XMS_ITS | Encounter Summary ---
Author Organization [facility] Address [address] [place] [address] Phone Care Team Providers Care Sliver Lapper Name Role Phone Chelsey Rankin DO Primary Care Provider [phone] Encounter Details Date Type Department Care Team (Late st Contact Info) Description 09/16/[address] [facility] [place] Family Medicine [address] [place] [address] Family Medicine, Physician [address] [place], [place] [phone] Social History Tobacco Use Types Packs/Day Years [...] on filedocumented in this encounter Care Teams Sliver Lapper Relationship Specialty Start Date End Date Chelsey Rankin DO [address] [place] [address] PCP - General 07/08/17 12/30/21 documented as of this encounter
--- OUTSIDE RECORDS SUMMARY | 2024-12-19 07:40 | XMS_ITS | Encounter Summary ---
Author Organization [facility] Address [address] [place] [address] Phone Care Team Providers Care Restaurant Area Director Name Role Phone Chelsey Rankin DO Primary Care Provider [phone] Encounter Details Date Type Department Care Team (Late st Contact Info) Description 04/06/2010 Documentation [facility] [place] Family Medicine [address] [place] [address] Family Medicine, Physician [address] [place], [place] [phone] Social History Tobacco Use Types Packs/Day Years [...] on filedocumented in this encounter Care Teams Restaurant Area Director Relationship Specialty Start Date End Date Chelsey Rankin DO [address] [place] [address] PCP - General 07/08/17 12/30/21 documented as of this encounter
--- OUTSIDE RECORDS SUMMARY | 2024-12-19 07:40 | XMS_ITS | Encounter Summary ---
Author Organization [facility] Address [address] [place] [address] Phone Care Team Providers Care Back Up Scan Coordinator Name Role Phone Chelsey Rankin DO Primary Care Provider [phone] Encounter Details Date Type Department Care Team (Late st Contact Info) Description 10/27/2012 Documentation [facility] [place] Family Medicine [address] [place] [address] Family Medicine, Physician [address] [place], [place] [phone] Social History Tobacco Use Types Packs/Day Years [...] on filedocumented in this encounter Care Teams Back Up Scan Coordinator Relationship Specialty Start Date End Date Chelsey Rankin DO [address] [place] [id number] PCP - General 07/08/17 12/30/21 documented as of this encounter
--- OUTSIDE RECORDS SUMMARY | 2024-12-19 07:40 | XMS_ITS | Encounter Summary ---
Author Organization [facility] Address [address] [place] [address] Phone Care Team Providers Care National Account Executive Name Role Phone Chelsey Rankin DO Primary Care Provider Encounter Details Date Type Department Care Team (Late st Contact Info) Description 09/16/2011 Documentation [facility] [place] Family Medicine [address] [place] [address] Family Medicine, Physician [address] [place], [place] [phone] Social History Tobacco Use Types Packs/Day Years [...] on filedocumented in this encounter Care Teams National Account Executive Relationship Specialty Start Date End Date Chelsey Rankin DO [address] [place] [address] PCP - General 07/08/17 12/30/21 documented as of this encounter
--- OUTSIDE RECORDS SUMMARY | 2024-12-19 07:40 | XMS_ITS | Clinical Summary ---
Author Organization [facility] Address [address] [place] [address] Phone Care Team Providers Care Technical Project Manager Name Role Phone Unavailable Primary Care Provider Unavailabl e Allergies Active Allergy Reactions Criticality Noted Date Comments Sulfa Antibiotics 08/05/2022 Other reaction(s): Rash all over body Immunizations Name Administration Dates Next Due COVID-19 Pfizer, georgiana-sucros e, 12+ years 12/31/2021 DTP 06/27/1995, 2,07/28/1991,03/27,01/25/1991 HPV, Quadrivalent 07/18/2008,03/11/2008,12/15/19 08 Hep B, ped/adol 09/14/1999,05/15/1999,04/14/1999 Hib (PRP-T) 12/28/1991, 1,03/27/1991,01/25 IPV 06/27/1995, 2,03/27/1991,01/25 Influenza Split 09/15/2011,08/31/2010 Influenza, injectable, quadr ivalent, preservative free 02/02/2019 Influenza, injectable, triva lent, preservative free 08/03/2024 MMR 06/27/1995,12/28/1991 Meningococcal Conj (Menactra) MCV4P 12/15/2007 Td (adult) (MBL), 2 Lf tetan us toxoid, PF, adsorbed 09/18/2002 Tdap 01/23/2019,12/15/2007 Family History Relation Name Status Comments Brother Alive Brother: Health y, Alive and well Father Alive Father: Healthy Maternal Grandmother Materna l grandmother: Diabetes mellitus, Hyperlipidemia Mother Alive Mother: Thyroid Problems Other Family history of Migraines Sister Alive Sister: health Social History Tobacco Use Types Packs/Day Years Used Date Smoking Tobacco: Never Comments:Never smoker Comments Unknown Sex and Gender Information Value Date Recorded Sex Assigned at Not on file Legal Sex Female 4:42 PM EDT Gender Identity Not on file Sexual Orientation Not on file Last Filed Vital Signs Vital Sign Reading Time Taken Comments Blood Pressure 102/56 09/15/2011 12:00 AM EDT Pulse 80 09/15/2011 12:00 AM EDT Temperature 36.8 ??C (98.3 ??F) 09/15/2011 12:00 AM E DT Respiratory Rate - - Oxygen Saturation - - Inhaled Oxygen Concentration - - Weight 62.6 kg (138 lb) 09/15/2011 12:00 AM EDT Height 154.9 cm (5' 1 ) 09/15/2011 12:00 AM EDT Body Mass Index 26.07 09/15/2011 12:00 AM EDT Plan of Treatment Health Maintenance Due Date Last Done Comments Varicella Vaccines (1 of 2 - 13+ 2-dose series) 2003 Consider Men B Vaccine (1 of 2 - Bexsero 2-dose series) 2006 COVID-19 Vaccine ( season) 2024 12/31/2021, 05/17/2021, 04/26/2021 Chlamydia and Gonorrhea Screening 11/28/2024 DTaP,Tdap,and Td Vaccines (8 - Td or Tdap) 01/23/2029 01/23/2019, 12/15/2007, 09/18/2002, Additional history exists HIB Vaccines Completed 12/28/1991, 06/30, 03/27/1991, Additional history exists IPV Vaccines Completed 06/27/1995, 02/28, 03/27/1991, Additional history exists MMR Vaccines Completed 06/27/1995, 12/28/1991 Hepatitis B Vaccines Completed 09/14/1999, 05/15/1999, 04/14/1999 Meningococcal Vaccine Completed 12/15/2007 HPV Vaccines Completed 07/18/2008, 02/26, 12/15/2007 Influenza Vaccines Completed 08/03/2024, 0 02/02/2019, 09/15/2011, Additional history exists Hepatitis A Vaccines Aged Out No long er eligible based on patient's age to complete this topic Men B Vaccine Aged Out No longer elig ible based on patient's age to complete this topic Pneumococcal Vaccine Aged Out No long er eligible based on patient's age to complete this topic Insurance [facility] PUBLIC DIRECT
[2024-12-19 07:41] VITALS: BMI 34.6
== END 2024-12-19 07:56 | disposition home or self-care (01) ==
PROVIDERS: PCP Internal Medicine; Visit Provider Orthopaedic Surgery
DX: M25.561 Pain in right knee (principal)
CPT/HCPCS: 99213; G2211

== ENCOUNTER → 2024-12-19 07:39 | Outpatient (BNVA) | payer OTHER, SELFPAY | PROVIDERS: PCP Internal Medicine; Visit Provider Orthopaedic Surgery | DX: M25.561 Pain in right knee (principal) | CPT/HCPCS: 99212 ==

== ENCOUNTER 2025-03-20 16:51 | Outpatient (AMB) | payer OTHER, SELFPAY ==
[2025-03-20 17:14] VITALS: BP 120/82; PULSE 84; TEMP 36.5; O2SAT 97; BMI 34.0
--- NOTE | 2025-03-20 17:14 | A.OFFPC_ITS ---
Vital Signs 03/20/25 17:14 Height 5 ft Weight 174 lb BMI 34.0 BP 120/82 Blood Pressure Location Lt brachial Position Sitting Pulse 84 Pulse Source Pulse Oximeter Temp 97.7 F Temp Source Temporal Artery Scan Pulse Oximetry (%) 97 Oxygen Delivery Method Room Air Intake Visit Reasons: Ongoing Pain Electronic Device Monitor Required: No Accompanied by: Self / Same As Patient Allergies Sulfa (Sulfonamide Antibiotics) Allergy (Intermediate, Verified 03/20/25 17:34) hives topiramate Adverse Reaction (Intermediate, Verified 03/20/25 17:34) eye changes Medication List - Last Reconciled 03/20/25 by Tami Brown MD clindamycin-benzoyl peroxide 1.2 %(1 % base) -5 % 1 appl topical DAILY sumatriptan succinate 50 mg PO Q2-4H PRN 30 days Tobacco use date assessed: 11/29/24 Dental Screening Dental Screen Date: 11/29/24 HPI HPI Comments History of Present Illness Details The patient is a 34-year-old female presenting with neck pain. The pain began after a flu infection in December and is localized on the left side of the throat. It does not present itself during eating or drinking but is noted when the patient lies on her left side or raises her voice. This pain is described as a poking sensation that is intermittent, influenced by vocal activity. Despite the symptoms, she denies fever and significant ear discomfort and is keen on identifying the cause. The patient?s medical history includes migraine management with sumatriptan and allergies to sulfa drugs and topiramate, although these are not thought to be implicated in her current issue. [facility] Medical History (Updated 03/20/25 @ 17:43 by Tami Brown MD) Physical exam Immunization due Pelvic pain in female Acne Migraines Obese Surgical History History of wisdom tooth extraction Family History Father History of mitral valve repair Mother Hypothyroid Maternal Grandmother Diabetes Hypertension Paternal Grandfather CVD (cardiovascular disease) Brother In good health Brother In good health Sister In good health Son In good health Social History Housing: Apartment Alcohol intake: never Patient Tobacco Use Status: Never used Tobacco e-Cigarette/Vaping Use: Never Used Second Hand Smoke Exposure: No service: No Current occupational status: employed Current occupational exposures/hazards: No Cognitive needs: No Hearing needs: No Vision needs: No Questionnaire Thrive Questionnaire Date Thrive assessed: 11/29/24 I am a: Patient What is your living situation today?: I have a steady place to live Within the past 12 months, did the food you bought not last and you didn't have the money to get more?: Never true Within the past 12 months, did you worry whether your food would run out before you got money to buy more?: Never true Do you have trouble paying for medicines?: No Do you have trouble getting transportation to medical appointments?: No Do you have trouble paying your heating and electricity bill?: No Do you have trouble taking care of your child, family member or friend?: No Do you have trouble with day-to-day activities such as bathing, preparing meals, shopping, managing finances, etc.?: No Are you currently unemployed and looking for a job?: No Are you interested in more education?: No Please select the resources that you would like help with: None Currently or been in a relationship where the following occur: No concerns reported THRIVE Score: 0 HERNÁN-7 AMB Questionnaire HERNÁN-7 Date HERNÁN - 7 assessed: 11/29/24 Source: Developed by Drs. Aidan Dwyer, Krystle Ma, Abiel Tavera and colleagues, with an educational julio c from [employer]. Review of Systems Const All systems reviewed & are unremarkable except as noted in HPI and below Card Denies chest pain at rest, Denies chest pain with activity, Denies edema, Denies irregular heart rhythm, Denies claudication, Denies dyspnea, Denies dyspnea on exertion, Denies orthopnea, Denies paroxysmal nocturnal dyspnea and Denies slow heart rate Resp Denies cough, Denies dyspnea and Denies dyspnea on exertion GI Denies abdominal pain, Denies change in bowel habits, Denies excessive flatus, Denies nausea and Denies vomiting Physical exam (Primary Care) Vital Signs: Last Vital Signs Temp 97.7 F 03/20/25 17:14 Pulse 84 03/20/25 17:14 BP 120/82 03/20/25 17:14 Pulse Ox 97 03/20/25 17:14 Oxygen Delivery Method Room Air 03/20/25 17:14 BMI result Body Mass Index 34.0 Tobacco/Smoking Status: Tobacco use Status Tobacco use date assessed 11/29/24 03/20/25 17:17 Patient Tobacco Use Status Never used Tobacco 03/20/25 17:17 e-Cigarette/Vaping Use Never Used 03/20/25 17:17 Thrive Assessment: Date of Thrive Assessment Date Thrive assessed 11/29/24 03/20/25 17:17 Currently or been in a relationship where the following occur: No concerns reported Resp Effort & Inspection: normal respiratory effort Auscultation: clear to auscultation bilaterally Cardio Jugular venous distension: no JVD Rate: regular rate Rhythm: regular rhythm Heart sounds: S1 normal heart sound present and S2 normal heart sound present Extrem General: Yes full ROM Coding Level of Care Code Est Pt Level 3 (61753) Complex EM visit Add On G2211 Diagnoses Cervical lymphadenopathy R59.0 Migraine without aura and without status migrainosus, not intractable G43.009 Migraine type: without aura Status migrainosus presence: without status migrainosus Intractability: not intractable Time Spent (min) 19 Assessment & Plan Assessment & Plan (1) Cervical lymphadenopathy: Code(s): R59.0 - Localized enlarged lymph nodes Category: Medical (2) Migraines: Code(s): G43.909 - Migraine, unspecified, not intractable, without status migrainosus Category: Medical Qualifiers: Migraine type: without aura Status migrainosus presence: without status migrainosus Intractability: not intractable Qualified Code(s): G43.009 - Migraine without aura, not intractable, without status migrainosus Plan The primary aim is to investigate the orofacial pain through ultrasound to assess any soft tissue or lymph node involvements. This is a prudent measure based on the specific symptoms and persistence of the pain. The patient's thyroid does not appear to be involved at this stage. The discussion included reassurance about the next steps and care considerations concerning her allergies to sulfa drugs and topiramate. Patient was informed and verbally consented to the use of an ambient scribe for clinic note documentation during this visit. During the discussion, I explained the plan for conducting an ultrasound to evaluate the soft tissue structures for any abnormal findings contributing to her orofacial pain. I reassured her that the thyroid gland does not seem to be involved, minimizing immediate concerns regarding thyroid issues. We talked about the patient's history of migraines and allergies to sulfa and topiramate, ensuring that her migraine management with sumatriptan remains appropriate and unrelated to her current complaint. I provided guidance on returning for follow- up discussions once the ultrasound results are available to devise a detailed management plan based on findings. Orders: Orders US soft tiss head and/or neck Today R59.0 - Localized enlarged lymph nodes Patient Instructions: - Schedule and attend an ultrasound as discussed. - Follow up for results and further consultations. - Monitor symptoms and report any significant changes. - Avoid medications containing sulfa or topiramate due to allergies.
--- OUTSIDE RECORDS SUMMARY | 2025-03-20 18:43 | XMS_ITS | Encounter Summary ---
Author Organization [facility] Address [address] [place] [address] Phone Care Team Providers Care Boom Worker Name Role Phone Chelsey Rankin DO Primary Care Provider [phone] Encounter Details Date Type Department Care Team (Late st Contact Info) Description 09/16/2011 Documentation [facility] Family Medicine [address] [place] [address] Family Medicine, Physician [address] [place], [place] [phone] Social History Tobacco Use Types Packs/Day Years [...] on filedocumented in this encounter Care Teams Boom Worker Relationship Specialty Start Date End Date Chelsey Rankin DO [address] [place] [address] PCP - General 07/08/17 12/30/21 documented as of this encounter
--- OUTSIDE RECORDS SUMMARY | 2025-03-20 18:43 | XMS_ITS | Encounter Summary ---
Author Organization [facility] Address [address] [place] [address] Phone Care Team Providers Care Machine I Cutter Name Role Phone Chelsey Rankin DO Primary Care Provider [phone] Encounter Details Date Type Department Care Team (Late st Contact Info) Description 04/06/2010 Documentation [facility] Medicine [address] [place] [address] Family Medicine, Physician [address] [place], [place] [phone] Social History Tobacco Use Types Packs/Day Years [...] on filedocumented in this encounter Care Teams Machine I Cutter Relationship Specialty Start Date End Date Chelsey Rankin DO [address] [place] [address] PCP - General 07/08/17 12/30/21 documented as of this encounter
--- OUTSIDE RECORDS SUMMARY | 2025-03-20 18:43 | XMS_ITS | Encounter Summary ---
Author Organization [facility] Address [address] [place] [address] Phone Care Team Providers Care National Business Director Name Role Phone Chelsey Rankin DO Primary Care Provider Encounter Details Date Type Department Care Team (Late st Contact Info) Description 07/14/2017 Conversion Encounter [facility] [address] [place] [address] Social History Tobacco Use Types Packs/Day Years [...] filedocumented in this encounter Care Teams National Business Director Relationship Specialty Start Date End Date Chelsey Rankin DO [address] [place] [address] PCP - General 07/08/17 12/30/21 documented as of this encounter
--- OUTSIDE RECORDS SUMMARY | 2025-03-20 18:43 | XMS_ITS | Encounter Summary ---
Author Organization [facility] Address [address] [place] [address] Phone Care Team Providers Care Bus Steward Name Role Phone Chelsey Rankin DO Primary Care Provider [phone] Encounter Details Date Type Department Care Team (Late st Contact Info) Description 10/27/2012 Documentation [facility] Family Medicine [address] [place] [address] Family Medicine, Physician [address] [place], [place] [phone] Social History Tobacco Use Types Packs/Day Years [...] on filedocumented in this encounter Care Teams Bus Steward Relationship Specialty Start Date End Date Chelsey Rankin DO [address] [place] [address] PCP - General 07/08/17 12/30/21 documented as of this encounter
--- OUTSIDE RECORDS SUMMARY | 2025-03-20 18:43 | XMS_ITS | Encounter Summary ---
Author Organization [facility] Address [address] [place] [address] Phone Care Team Providers Care Timber Management Specialist Name Role Phone Chelsey Rankin DO Primary Care Provider [phone] Encounter Details Date Type Department Care Team (Late st Contact Info) Description 05/26/2012 Documentation [facility] [place] Medicine [address] [place] [address] Family Medicine, Physician [address] [place], [place] [phone] Social History Tobacco Use Types Packs/Day Years [...] on filedocumented in this encounter Care Teams Timber Management Specialist Relationship Specialty Start Date End Date Chelsey Rankin DO [address] [place] [address] PCP - General 07/08/17 12/30/21 documented as of this encounter
--- OUTSIDE RECORDS SUMMARY | 2025-03-20 18:43 | XMS_ITS | Encounter Summary ---
Author Organization [facility] Address [address] [place] [address] Phone Care Team Providers Care Supervisor Post Wave Name Role Phone Chelsey Rankin DO Primary Care Provider [phone] Encounter Details Date Type Department Care Team (Late st Contact Info) Description 09/16/2011 Documentation [facility] Family Medicine [address] [place] [address] Family Medicine, Physician [address] [place], [place] [phone] Social History Tobacco Use Types Packs/Day Years [...] on filedocumented in this encounter Care Teams Supervisor Post Wave Relationship Specialty Start Date End Date Chelsey Rankin DO [address] [place] [address] PCP - General 07/08/17 12/30/21 documented as of this encounter
--- OUTSIDE RECORDS SUMMARY | 2025-03-20 18:43 | XMS_ITS | Clinical Summary ---
Author Organization [facility] Address [address] [place] [address] Phone Care Team Providers Care Sound Truck Operator Name Role Phone Unavailable Primary Care Provider Unavailabl e Allergies Active Allergy Reactions Criticality Noted Date Comments Sulfa Antibiotics 08/05/2022 Other reaction(s): Rash all over body Encounters Date Type Department Care Team Description 01/10/2025 10:00 AM EST Clinical Support [address] [address] Chayo Manzano LPN Encounter for laboratory testing for COVID-19 virus (Primary Dx) from Last 3 Months Immunizations Immunization Administration Dates Next Due COVID-19 Pfizer, georgiana-sucros [...] of 2 - 13+ 2-dose series) 2003 COVID-19 Vaccine ( season) 2024 12/31/2021, 05/17/2021, [...] on patient's age to complete this topic Procedures * Due to [facility] law, this organization might not be sharing sensitive test results. Procedure Name Priority Date/Time Associated Diagnosis Comments POCT COVID-19, INFLUENZA, AND RSV NUCLEIC ACID (AMPLIFIED PROBE) Routine 01/10/2025 11:19 AM EST Encounter for laboratory testing for COVID-19 virus from Last 3 Months Results * Due to [facility] ([facility]) law, this organization might not be sharing sensitive test results. * (ABNORMAL) POCT COVID-19, Influenza, RSV Nucleic Acid (Amplified Probe) (01/10/2025 11:19 AM EST) SARS-COV-2 Nucleic Acid Molecular Negative Negative, Presumptive Negative, None Detected [facility] Rhea MALLORY Influenza A Nucleic Acid Amplified Probe Positive(A) Negative, Presumptive Negative, None Detected [facility] DE[facility] Influenza B Nucleic Acid Amplified Probe Negative Negative, None Detected, Not Detected [facility] DEB RSV Nucleic Acid, POC Negative Negative, None Detected, Not Detected [facility] Rhea MALLORY Control Band Present Present [facility] Rhea MALLORY Nasal swab 01/10/2025 11:1 9 AM EST us Oanh Alejandre MD POINT OF CARE TEST ORDERABL ES Final Result [facility] Rhea MALLORY [address] [facility] [place] [id number] from Last 3 Months Insurance [facility] PUBLIC DIRECT
--- OUTSIDE RECORDS SUMMARY | 2025-03-20 18:43 | XMS_ITS | Encounter Summary ---
Author Organization [facility] Address [address] [place] [address] Phone Care Team Providers Care Teller Supervisor Name Role Phone Chelsey Rankin DO Primary Care Provider [phone] Encounter Details Date Type Department Care Team (Late st Contact Info) Description 09/16/2011 Documentation [facility] [place] Family Medicine [address] [place] [address] Family Medicine, Physician [address] [place], [place] [phone] Social History Tobacco Use Types Packs/Day Years [...] on filedocumented in this encounter Care Teams Teller Supervisor Relationship Specialty Start Date End Date Chelsey Rankin DO [address] [place] [address] PCP - General 07/08/17 12/30/21 documented as of this encounter
== END 2025-03-20 17:42 | disposition home or self-care (01) ==
LOC: HO.HMCH 16:52
PROVIDERS: PCP Internal Medicine; Visit Provider Internal Medicine
DX: R59.0 Localized enlarged lymph nodes (principal); G43.009 Migraine without aura, not intractable, without status migrainosus

== ENCOUNTER → 2025-03-20 16:51 | Outpatient (BNVA) | payer OTHER, SELFPAY | PROVIDERS: PCP Internal Medicine; Visit Provider Internal Medicine | DX: R59.0 Localized enlarged lymph nodes (principal); G43.009 Migraine without aura, not intractable, without status migrainosus | CPT/HCPCS: 99212 ==

== ENCOUNTER 2025-04-04 14:23 | Outpatient (REF) | payer OTHER, SELFPAY ==
--- NOTE | ~2025-04-04 | MM_ITS ---
EXAMINATION: MM DIAGNOSTIC DIGITAL BREAST TOMOSYNTHESIS, BILATERAL CLINICAL INFORMATION: Two-year follow-up for grouped calcifications in the upper outer right breast. COMPARISON: Mammography: Comparison is made with relevant prior exams. TECHNIQUE: Digital breast mammography with tomosynthesis is performed in both the craniocaudal and mediolateral oblique views along with computer-aided detection (CAD). FINDINGS: The breasts are heterogeneously dense, which may obscure small masses (ACR BI-RADS breast composition Category c). Grouped scattered calcifications in the upper outer quadrant of the right breast some of which layer on ML magnification views are not significantly changed from prior magnification views dating back for 2 years and therefore benign. There are no significant masses, abnormal calcifications, or other abnormalities. Results are provided to the patient at time of visit by the technologist. MM/MM tomosynthesis diagnostic BI IMPRESSION: Left: Negative. Right: Grouped calcifications in the upper outer quadrant are not significantly changed on magnification views dating back for 2 years and therefore benign. ASSESSMENT: BI-RADS BI-RADS 2 - Benign Findings RECOMMENDATION: 1 year F/U This patient's information was entered into a reminder system with a target due date for their next mammogram. Electronically signed by: Lashon Palafox DO 04/04/2025 03:02 PM EDT
--- OUTSIDE RECORDS SUMMARY | 2025-04-04 15:13 | XMS_ITS | Encounter Summary ---
Author Organization [facility] Address [address] [place] [address] Phone Care Team Providers Care Automatic Door Mechanic Name Role Phone Chelsey Rankin DO Primary Care Provider [phone] Encounter Details Date Type Department Care Team (Late st Contact Info) Description 09/16/[address] [facility] [place] Family Medicine [address] [place] [address] Family Medicine, Physician [address] [place], [place] [phone] Social History Tobacco Use Types Packs/Day Years [...] on filedocumented in this encounter Care Teams Automatic Door Mechanic Relationship Specialty Start Date End Date Chelsey Rankin DO [address] [place] [address] PCP - General 07/08/17 12/30/21 documented as of this encounter
--- OUTSIDE RECORDS SUMMARY | 2025-04-04 15:13 | XMS_ITS | Encounter Summary ---
Author Organization [facility] Address [address] [place] [address] Phone Care Team Providers Care Plasma Processor Name Role Phone Chelsey Rankin DO Primary Care Provider [phone] Encounter Details Date Type Department Care Team (Late st Contact Info) Description 10/27/2012 Documentation [facility] [place] Family Medicine [address] [place] [address] Family Medicine, Physician [address] [place], [place] [phone] Social History Tobacco Use Types Packs/Day Years [...] on filedocumented in this encounter Care Teams Plasma Processor Relationship Specialty Start Date End Date Chelsey Rankin DO [address] [place] [address] PCP - General 07/08/17 12/30/21 documented as of this encounter
--- OUTSIDE RECORDS SUMMARY | 2025-04-04 15:13 | XMS_ITS | Encounter Summary ---
Author Organization [facility] Address [address] [place] [address] Phone Care Team Providers Care Mixing Machine Feeder Name Role Phone Chelsey Rankin DO Primary Care Provider [phone] Encounter Details Date Type Department Care Team (Late st Contact Info) Description 09/16/2011 [place]ation [facility] [place] [address] [place] [address] Family Medicine, Physician [address] [place], [place] [phone] Social History Tobacco Use Types Packs/Day Years [...] on filedocumented in this encounter Care Teams Mixing Machine Feeder Relationship Specialty Start Date End Date Chelsey Rankin DO [address] [place] [address] PCP - General 07/08/17 12/30/21 documented as of this encounter
--- OUTSIDE RECORDS SUMMARY | 2025-04-04 15:13 | XMS_ITS | Encounter Summary ---
Author Organization [facility] Address [address] [place] [address] Phone Care Team Providers Care Leaf Sucker Operator Name Role Phone Chelsey Rankin DO Primary Care Provider [phone] Encounter Details Date Type Department Care Team (Late st Contact Info) Description 05/26/2012 Documentation [facility] [place] [address] [place] [address] Family Medicine, Physician [address] [place], [place] [phone] Social History Tobacco Use Types Packs/Day Years [...] on filedocumented in this encounter Care Teams Leaf Sucker Operator Relationship Specialty Start Date End Date Chelsey Rankin DO [address] [place] [address] [place] [address] PCP - General 07/08/17 12/30/21 documented as of this encounter
--- OUTSIDE RECORDS SUMMARY | 2025-04-04 15:13 | XMS_ITS | Encounter Summary ---
Author Organization [facility] Address [address] [place] [address] Phone Care Team Providers Care Metalsmith Helper Name Role Phone Chelsey Rankin DO Primary Care Provider Encounter Details Date Type Department Care Team (Late st Contact Info) Description 07/14/2017 Conversion Encounter [facility] [address] [place] [address] Social History Tobacco Use Types Packs/Day Years [...] on filedocumented in this encounter Care Teams Metalsmith Helper Relationship Specialty Start Date End Date Chelsey Rankin DO [address] [place] [address] PCP - General 07/08/17 12/30/21 documented as of this encounter
--- OUTSIDE RECORDS SUMMARY | 2025-04-04 15:13 | XMS_ITS | Encounter Summary ---
Author Organization [facility] Address [address] [place] [address] Phone Care Team Providers Care Space Systems Operations Superintendent Name Role Phone Chelsey Rankin DO Primary Care Provider [phone] Encounter Details Date Type Department Care Team (Late st Contact Info) Description 09/16/2011 Documentation [facility] [place] [address] [place] [address] Family Medicine, Physician [address] [place], [place] [phone] Social History Tobacco Use Types Packs/Day Years [...] on filedocumented in this encounter Care Teams Space Systems Operations Superintendent Relationship Specialty Start Date End Date Chelsey Rankin DO [address] [place] [address] PCP - General 07/08/17 12/30/21 documented as of this encounter
--- OUTSIDE RECORDS SUMMARY | 2025-04-04 15:13 | XMS_ITS | Clinical Summary ---
Author Organization [facility] Address [address] [place] [address] Phone Care Team Providers Care Auto Body Painter Name Role Phone Unavailable Primary Care Provider Unavailabl e Allergies Active Allergy Reactions Criticality Noted Date Comments Sulfa Antibiotics 08/05/2022 Other reaction(s): Rash all over body Encounters Date Type Department Care Team Description 01/10/2025 10:00 AM EST Clinical Support [address] [address] Chayo Manzano LPN Encounter for laboratory testing [...] complete this topic Procedures * Due to [facility] law, this organization might not be sharing sensitive test results. Procedure Name Priority Date/Time Associated Diagnosis Comments POCT COVID-19, INFLUENZA, AND RSV NUCLEIC ACID (AMPLIFIED PROBE) Routine 01/10/2025 11:19 AM EST Encounter for laboratory testing for COVID-19 virus from Last 3 Months Results * Due to [place] [employer] law, this organization might not be sharing sensitive test results. * (ABNORMAL) POCT COVID-19, Influenza, RSV Nucleic Acid (Amplified Probe) (01/10/2025 11:19 AM EST) SARS-COV-2 Nucleic Acid Molecular Negative Negative, Presumptive Negative, None Detected [facility] Rhea MALLORY Influenza A Nucleic Acid Amplified Probe Positive(A) Negative, Presumptive Negative, None Detected [facility] Influenza B Nucleic Acid Amplified Probe Negative Negative, None Detected, Not Detected [facility] RSV Nucleic Acid, POC Negative Negative, None Detected, Not Detected [facility] Rhea MALLORY Control Band Present Present [facility] Rhea MALLORY Nasal swab 01/10/2025 11:1 9 AM EST us Oanh Alejandre MD POINT OF CARE TEST ORDERABL ES Final Result [facility] Rhea MALLORY [address] [facility] [place]ONIQUE Mallory [id number] from Last 3 Months Insurance [employer] PUBLIC DIRECT
--- OUTSIDE RECORDS SUMMARY | 2025-04-04 15:13 | XMS_ITS | Encounter Summary ---
Author Organization [facility] Address [address] [place] [address] Phone Care Team Providers Care Desizing Pad Operator Name Role Phone Chelsey Rankin DO Primary Care Provider [phone] Encounter Details Date Type Department Care Team (Late st Contact Info) Description 04/06/2010 Documentation [facility] [place] [address] [place] [address] Family Medicine, Physician [address] [place], [place] [phone] Social History Tobacco Use Types Packs/Day Years [...] on filedocumented in this encounter Care Teams Desizing Pad Operator Relationship Specialty Start Date End Date Chelsey Rankin DO [address] [place] [address] PCP - General 07/08/17 12/30/21 documented as of this encounter
== END 2025-04-04 14:24 | disposition home or self-care (01) ==
LOC: HO.MAMMO 14:23
PROVIDERS: PCP Internal Medicine; Visit Provider Internal Medicine
DX: R92.1 Mammographic calcification found on diagnostic imaging of breast (principal)
CPT/HCPCS: 77062; 77066

== ENCOUNTER → 2025-04-04 14:30 | Outpatient (BNV) | payer OTHER, SELFPAY | PROVIDERS: PCP Internal Medicine; Visit Provider Internal Medicine | DX: R92.1 Mammographic calcification found on diagnostic imaging of breast (principal) | CPT/HCPCS: 77062; 77066 ==

== ENCOUNTER 2025-04-10 15:11 | Outpatient (REF) | payer OTHER, SELFPAY ==
--- NOTE | ~2025-04-10 | US_ITS ---
CLINICAL HISTORY: R59.0 - Localized enlarged lymph nodes --- Additional Notes or Special Instructions : left submandibular Ultrasound soft tissue neck Comparison: None Findings: Ultrasound evaluation was performed of the soft tissues of the left side of the neck in the area of concern. There are several small lymph nodes. The largest lymph node measures 2.7 x 0.7 x 1.9 cm in size. Lymph nodes are normal morphology and contain fatty barron. Impression: 1. There are several small lymph nodes within the soft tissues in the area of concern. These are most likely inflammatory. This document has been electronically signed by: Chiqui Lawson MD on 04/11/2025 14:49:19
--- OUTSIDE RECORDS SUMMARY | 2025-04-10 15:17 | XMS_ITS | Encounter Summary ---
Author Organization [facility] Address [address] [place] [address] Phone Care Team Providers Care Bail Bondsman Name Role Phone Chelsey Rankin DO Primary Care Provider [phone] Encounter Details Date Type Department Care Team (Late st Contact Info) Description 05/26/2012 Documentation [facility] [place] [address] [place] [address] Family Medicine, Physician [address] [place], [place] [phone] Social History Tobacco Use Types Packs/Day Years [...] on filedocumented in this encounter Care Teams Bail Bondsman Relationship Specialty Start Date End Date Chelsey Rankin DO [address] [place] [address] [place] [address] PCP - General 07/08/17 12/30/21 documented as of this encounter
--- OUTSIDE RECORDS SUMMARY | 2025-04-10 15:17 | XMS_ITS | Encounter Summary ---
Author Organization [facility] Address [address] [place] [address] Phone Care Team Providers Care Retail Customer Service Representative Name Role Phone Chelsey Rankin DO Primary Care Provider [phone] Encounter Details Date Type Department Care Team (Late st Contact Info) Description 09/16/2011 Documentation [facility] [place] [address] [place] [address] Family Medicine, Physician [address] [place], [place] [phone] Social History Tobacco Use Types Packs/Day Years [...] on filedocumented in this encounter Care Teams Retail Customer Service Representative Relationship Specialty Start Date End Date Chelsey Rankin DO [address] [place] [address] PCP - General 07/08/17 12/30/21 documented as of this encounter
--- OUTSIDE RECORDS SUMMARY | 2025-04-10 15:17 | XMS_ITS | Encounter Summary ---
Author Organization [facility] Address [address] [place] [address] Phone Care Team Providers Care Quality Control Supervisor Name Role Phone Chelsey Rankin DO Primary Care Provider [phone] Encounter Details Date Type Department Care Team (Late st Contact Info) Description 09/16/2011 [place] [facility] [place] [address] [place] [address] Family Medicine, Physician [address] [place], [place] [phone] Social History Tobacco Use Types Packs/Day Years [...] on filedocumented in this encounter Care Teams Quality Control Supervisor Relationship Specialty Start Date End Date Chelsey Rankin DO [address] [place] [address] PCP - General 07/08/17 12/30/21 documented as of this encounter
--- OUTSIDE RECORDS SUMMARY | 2025-04-10 15:17 | XMS_ITS | Encounter Summary ---
Author Organization [facility] Address [address] [place] [address] Phone Care Team Providers Care Yoker Name Role Phone Chelsey Rankin DO Primary Care Provider [phone] Encounter Details Date Type Department Care Team (Late st Contact Info) Description 10/27/2012 Documentation [facility] [place] [address] [place] [address] Family Medicine, Physician [address] [place], [place] [phone] Social History Tobacco Use Types Packs/Day Years [...] on filedocumented in this encounter Care Teams Yoker Relationship Specialty Start Date End Date Chelsey Rankin DO [address] [place] [address] PCP - General 07/08/17 12/30/21 documented as of this encounter
--- OUTSIDE RECORDS SUMMARY | 2025-04-10 15:17 | XMS_ITS | Clinical Summary ---
Author Organization [facility] Address [address] [place] [address] Phone Care Team Providers Care Sheet Metal Smith Name Role Phone Unavailable Primary Care Provider Unavailabl e Allergies Active Allergy Reactions Criticality Noted Date Comments Sulfa Antibiotics 08/05/2022 Other reaction(s): Rash all over body Immunizations Immunization Administration Dates Next Due COVID-19 [...] patient's age to complete this topic Insurance [facility] PUBLIC DIRECT
--- OUTSIDE RECORDS SUMMARY | 2025-04-10 15:17 | XMS_ITS | Encounter Summary ---
Author Organization [facility] Address [address] [place] [address] Phone Care Team Providers Care Certified Registered Locksmith Name Role Phone Chelsey Rankin DO Primary Care Provider [phone] Encounter Details Date Type Department Care Team (Late st Contact Info) Description 04/06/2010 Documentation [facility] [place] [address] [place] [address] Family Medicine, Physician [address] [place], [place] [phone] Social History Tobacco Use Types Packs/Day Years [...] on filedocumented in this encounter Care Teams Certified Registered Locksmith Relationship Specialty Start Date End Date Chelsey Rankin DO [address] [place] [address] PCP - General 07/08/17 12/30/21 documented as of this encounter
--- OUTSIDE RECORDS SUMMARY | 2025-04-10 15:17 | XMS_ITS | Encounter Summary ---
Author Organization [facility] Address [address] [place] [address] Phone Care Team Providers Care Equine Manager Name Role Phone Chelsey Rankin DO Primary Care Provider [phone] Encounter Details Date Type Department Care Team (Late st Contact Info) Description 09/16/2011 [place] [facility] [place] [address] [place] [address] Family Medicine, Physician [address] [place], [place] [phone] Social History Tobacco Use Types Packs/Day Years [...] on filedocumented in this encounter Care Teams Equine Manager Relationship Specialty Start Date End Date Chelsey Rankin DO [address] [place] [address] PCP - General 07/08/17 12/30/21 documented as of this encounter
--- OUTSIDE RECORDS SUMMARY | 2025-04-10 15:17 | XMS_ITS | Encounter Summary ---
Author Organization [facility] Address [address] [place] [address] Phone Care Team Providers Care Upper Shaper Name Role Phone Chelsey Rankin DO Primary Care Provider [phone] Encounter Details Date Type Department Care Team (Late st Contact Info) Description 07/14/2017 Conversion Encounter [facility] [address] [place] [address] Social History Tobacco Use Types Packs/Day Years [...] on filedocumented in this encounter Care Teams Upper Shaper Relationship Specialty Start Date End Date Chelsey Rankin DO [address] [place] [address] PCP - General 07/08/17 12/30/21 documented as of this encounter
== END 2025-04-10 15:12 | disposition home or self-care (01) ==
LOC: HO.HMGCX 15:11
PROVIDERS: PCP Internal Medicine; Visit Provider Internal Medicine
DX: R59.0 Localized enlarged lymph nodes (principal)
CPT/HCPCS: 76536

== ENCOUNTER → 2025-04-10 15:13 | Outpatient (BNV) | payer OTHER, SELFPAY | PROVIDERS: PCP Internal Medicine; Visit Provider Radiology Diagnostic Radiology | DX: R59.0 Localized enlarged lymph nodes (principal) | CPT/HCPCS: 76536 ==

== ENCOUNTER 2025-04-15 07:49 | Outpatient (AMB) | payer OTHER, SELFPAY ==
--- OUTSIDE RECORDS SUMMARY | 2025-04-15 07:52 | XMS_ITS | Encounter Summary ---
Author Organization [facility] Address [address] [place] [address] Phone Care Team Providers Care Commodity Industry Analyst Name Role Phone Chelsey Rankin DO Primary Care Provider [phone] Encounter Details Date Type Department Care Team (Late st Contact Info) Description 09/16/2011 [place] [facility] [place] [address] [place] [address] Family Medicine, Physician [address] [place], [place] [phone] Social History Tobacco Use Types Packs/Day Years [...] on filedocumented in this encounter Care Teams Commodity Industry Analyst Relationship Specialty Start Date End Date Chelsey Rankin DO [address] [place] [address] PCP - General 07/08/17 12/30/21 documented as of this encounter
--- OUTSIDE RECORDS SUMMARY | 2025-04-15 07:52 | XMS_ITS | Encounter Summary ---
Author Organization [facility] Address [address] [place] [address] Phone Care Team Providers Care Shell Maker Lockstitch Name Role Phone Chelsey Rankin DO Primary Care Provider [phone] Encounter Details Date Type Department Care Team (Late st Contact Info) Description 09/16/2011 Documentation [facility] [place] [address] [place] [address] Family Medicine, Physician [address] [place], [place] [phone] Social History Tobacco Use Types Packs/Day Years [...] on filedocumented in this encounter Care Teams Shell Maker Lockstitch Relationship Specialty Start Date End Date Chelsey Rankin DO [address] [place] [address] PCP - General 07/08/17 12/30/21 documented as of this encounter
--- OUTSIDE RECORDS SUMMARY | 2025-04-15 07:52 | XMS_ITS | Encounter Summary ---
Author Organization [facility] Address [address] [place] [address] Phone Care Team Providers Care Graduate Assistant Name Role Phone Chelsey Rankin DO Primary Care Provider [phone] Encounter Details Date Type Department Care Team (Late st Contact Info) Description 04/06/2010 Documentation [facility] [place] [address] [place] [address] Family Medicine, Physician [address] [place], [place] [phone] Social History Tobacco Use Types Packs/Day Years [...] on filedocumented in this encounter Care Teams Graduate Assistant Relationship Specialty Start Date End Date Chelsey Rankin DO [address] [place] [address] PCP - General 07/08/17 12/30/21 documented as of this encounter
--- OUTSIDE RECORDS SUMMARY | 2025-04-15 07:52 | XMS_ITS | Clinical Summary ---
Author Organization [facility] Address [address] [place] [address] Phone Care Team Providers Care Installers Mechanical Name Role Phone Unavailable Primary Care Provider [...] patient's age to complete this topic Insurance [facility] PUBLIC DIRECT
--- OUTSIDE RECORDS SUMMARY | 2025-04-15 07:52 | XMS_ITS | Encounter Summary ---
Author Organization [facility] Address [address] [place] [address] Phone Care Team Providers Care Quarter Folder Name Role Phone Chelsey Rankin DO Primary Care Provider [phone] Encounter Details Date Type Department Care Team (Late st Contact Info) Description 09/16/2011 [place] [facility] [place] [address] [place] [address] Family Medicine, Physician [address] [place], [place] [phone] Social History Tobacco Use Types Packs/Day Years [...] on filedocumented in this encounter Care Teams Quarter Folder Relationship Specialty Start Date End Date Chelsey Rankin DO [address] [place] [address] PCP - General 07/08/17 12/30/21 documented as of this encounter
--- OUTSIDE RECORDS SUMMARY | 2025-04-15 07:52 | XMS_ITS | Encounter Summary ---
Author Organization [facility] Address [address] [place] [address] Phone Care Team Providers Care Paint Roller Covermaker Name Role Phone Chelsey Rankin DO Primary Care Provider [phone] Encounter Details Date Type Department Care Team (Late st Contact Info) Description 05/26/2012 Documentation [facility] [place] [address] [place] [address] Family Medicine, Physician [address] [place], [place] [phone] Social History Tobacco Use Types Packs/Day Years [...] on filedocumented in this encounter Care Teams Paint Roller Covermaker Relationship Specialty Start Date End Date Chelsey Rankin DO [address] [place] [address] PCP - General 07/08/17 12/30/21 documented as of this encounter
--- OUTSIDE RECORDS SUMMARY | 2025-04-15 07:52 | XMS_ITS | Encounter Summary ---
Author Organization [facility] Address [address] [place] [address] Phone Care Team Providers Care Ring Conductor Name Role Phone Chelsey Rankin DO Primary Care Provider [phone] Encounter Details Date Type Department Care Team (Late st Contact Info) Description 10/27/2012 Documentation [facility] [place] [address] [place] [address] Family Medicine, Physician [address] [place], [place] [phone] Social History Tobacco Use Types Packs/Day Years [...] on filedocumented in this encounter Care Teams Ring Conductor Relationship Specialty Start Date End Date Chelsey Rankin DO [address] [place] [address] PCP - General 07/08/17 12/30/21 documented as of this encounter
--- OUTSIDE RECORDS SUMMARY | 2025-04-15 07:52 | XMS_ITS | Encounter Summary ---
Author Organization [facility] Address [address] [place] [address] Phone Care Team Providers Care Makeup Instructor Name Role Phone Chelsey Rankin DO Primary Care Provider Encounter Details Date Type Department Care Team (Late st Contact Info) Description 07/14/2017 Conversion Encounter [facility] [address] [place] [address] Social History Tobacco Use Types Packs/Day Years [...] on filedocumented in this encounter Care Teams Makeup Instructor Relationship Specialty Start Date End Date Chelsey Rankin DO [address] [place] [address] PCP - General 07/08/17 12/30/21 documented as of this encounter
[2025-04-15 07:54] VITALS: BP 136/82; BMI 33.8
--- NOTE | 2025-04-15 07:54 | A.OFFPC_ITS ---
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 Accompanied by: Self / Same As Patient Allergies Sulfa (Sulfonamide Antibiotics) Allergy (Intermediate, Verified 04/15/25 08:29) hives topiramate Adverse Reaction (Intermediate, Verified 04/15/25 08:29) eye changes Medication List - Last Reconciled 04/15/25 by Tami Brown MD clindamycin-benzoyl peroxide 1.2 %(1 % base) -5 % 1 appl topical DAILY sumatriptan succinate 50 mg PO Q2-4H PRN 30 days Tobacco use date assessed: 11/29/24 Dental Screening Dental Screen Date: 11/29/24 HPI HPI Comments History of Present Illness Details The patient is a 34-year-old female presenting with concerns regarding persistent abdominal pain localized to the left lower quadrant. Her symptoms began abruptly around 1:00 AM, characterized by cramping pain, moderate in intensity, accompanied by significant nausea. While she experienced normal bowel movements, the pain was unrelieved despite attempts at hydration and rest. Previous imaging, including a pelvic ultrasound and a CT scan with contrast, disclosed an inflamed colon consistent with colitis, as well as a benign right ovarian dermoid cyst. Symptomatically, the patient describes intermittent episodes of pain that exacerbate without predictable triggers, potentially linked to dietary intake such as yogurt. She has made dietary modifications, aiming to reduce suspected irritants like caffeine and acidic substances. Despite these efforts, the pain remains recurrent, influencing her functional capacity and work attendance. A parallel concern includes cervical lymphadenopathy identified through a neck ultrasound, likely reactive following flu-like symptoms previously experienced. Incidental findings showed enlarged lymph nodes, attributed to an inflammatory response. The patient denies current throat pain or systemic symptoms like fever, reporting only occasional ear discomfort and transient nasal congestion. FORMERLY [facility], [facility] Medical History (Updated 04/15/25 @ 08:38 by Tami Brown MD) Physical exam Immunization due Pelvic pain in female Acne Migraines Obese Surgical History History of wisdom tooth extraction Family History Father History of mitral valve repair Mother Hypothyroid Maternal Grandmother Diabetes Hypertension Paternal Grandfather CVD (cardiovascular disease) Brother In good health Brother In good health Sister In good health Son In good health Social History Housing: Apartment Alcohol intake: never Patient Tobacco Use Status: Never used Tobacco e-Cigarette/Vaping Use: Never Used Second Hand Smoke Exposure: No service: No Current occupational status: employed Current occupational exposures/hazards: No Cognitive needs: No Hearing needs: No Vision needs: No Questionnaire Thrive Questionnaire Date Thrive assessed: 11/29/24 I am a: Patient What is your living situation today?: I have a steady place to live Within the past 12 months, did the food you bought not last and you didn't have the money to get more?: Never true Within the past 12 months, did you worry whether your food would run out before you got money to buy more?: Never true Do you have trouble paying for medicines?: No Do you have trouble getting transportation to medical appointments?: No Do you have trouble paying your heating and electricity bill?: No Do you have trouble taking care of your child, family member or friend?: No Do you have trouble with day-to-day activities such as bathing, preparing meals, shopping, managing finances, etc.?: No Are you currently unemployed and looking for a job?: No Are you interested in more education?: No Please select the resources that you would like help with: None Currently or been in a relationship where the following occur: No concerns reported THRIVE Score: 0 HERNÁN-7 AMB Questionnaire HERNÁN-7 Date HERNÁN - 7 assessed: 11/29/24 Source: Developed by Drs. Aidan Dwyer, Krystle Ma, Abiel Tavera and colleagues, with an educational julio c from [employer]. Review of Systems Const All systems reviewed & are unremarkable except as noted in HPI and below Card Denies chest pain at rest, Denies chest pain with activity, Denies edema, Denies irregular heart rhythm, Denies claudication, Denies dyspnea, Denies dyspnea on exertion, Denies orthopnea, Denies paroxysmal nocturnal dyspnea and Denies slow heart rate Resp Denies cough, Denies dyspnea and Denies dyspnea on exertion GI Denies abdominal pain, Denies change in bowel habits, Denies excessive flatus, Denies nausea and Denies vomiting Physical exam (Primary Care) Vital Signs: Last Vital Signs BP 136/82 04/15/25 07:54 BMI result Body Mass Index 33.8 BMI Assessment/Plan discussion: High BMI High, discussed plan: lifestyle, weight reduction, dietary and physical activity Tobacco/Smoking Status: Tobacco use Status Tobacco use date assessed 11/29/24 04/15/25 07:59 Patient Tobacco Use Status Never used Tobacco 04/15/25 07:59 e-Cigarette/Vaping Use Never Used 04/15/25 07:59 Thrive Assessment: Date of Thrive Assessment Date Thrive assessed 11/29/24 04/15/25 07:59 Currently or been in a relationship where the following occur: No concerns reported Neck Neck: Yes normal visual inspection and Yes supple Resp Effort & Inspection: normal respiratory effort Auscultation: clear to auscultation bilaterally Cardio Jugular venous distension: no JVD Rate: regular rate Rhythm: regular rhythm Heart sounds: S1 normal heart sound present and S2 normal heart sound present GI Inspection: Yes normal to inspection Palpation (GI): Soft to palpation and nontender Auscultation: normal bowel sounds Extrem General: Yes full ROM Coding Level of Care Code Est Pt Level 4 (48667) Complex EM visit Add On G2211 Diagnoses Lesion of right ovary N83.9 Colitis K52.9 Cervical lymphadenopathy R59.0 Migraine without aura and without status migrainosus, not intractable G43.009 Migraine type: without aura Status migrainosus presence: without status migrainosus Intractability: not intractable Time Spent (min) 23 Assessment & Plan Assessment & Plan (1) Lesion of right ovary: Code(s): N83.9 - Noninflammatory disorder of ovary, fallopian tube and broad ligament, unspecified Category: Medical (2) Colitis: Code(s): K52.9 - Noninfective gastroenteritis and colitis, unspecified Category: Medical (3) Cervical lymphadenopathy: Code(s): R59.0 - Localized enlarged lymph nodes Category: Medical (4) Migraines: Code(s): G43.909 - Migraine, unspecified, not intractable, without status migrainosus Category: Medical Qualifiers: Migraine type: without aura Status migrainosus presence: without status migrainosus Intractability: not intractable Qualified Code(s): G43.009 - Migraine without aura, not intractable, without status migrainosus Plan I plan to manage the patient's symptoms primarily through pharmacological intervention with omeprazole, to address persistent abdominal pain related to colitis. A gastroenterology referral has been placed for a specialist assessment and further diagnostic workup. Additionally, an MRI of the pelvis will be conducted to evaluate the right ovarian dermoid cyst further. A course of antibiotics is prescribed for cervical lymphadenopathy, with a follow-up planned in three months to ensure resolution. Considerations regarding dietary triggers and stress are being explored, with ongoing adjustments as necessary. Patient was informed and verbally consented to the use of an ambient scribe for clinic note documentation during this visit. I discussed with the patient the importance of addressing her abdominal pain both pharmacologically and through specialist referral. The prescription for omeprazole was explained as a means to reduce gastric acidity potentially contributing to her symptoms. I emphasized the gastroenterology referral for further investigation of colitis. We reviewed the need for an MRI of the pelvis to assess the right ovarian dermoid cyst further. Regarding cervical lymphadenopathy, treatment with antibiotics was recommended to mitigate any inflammatory response, and a reassessment was scheduled in three months. The patient found the plan agreeable and acknowledged the instructions for dietary and lifestyle modifications while understanding her role in monitoring symptoms. Orders: Orders MR pelvis wo con Today N83.9 - Noninflammatory disorder of ovary, fallopian tube and broad ligament, unspecified US soft tiss head and/or neck 3 Months R59.0 - Localized enlarged lymph nodes Referrals Gastroenterology Referral K52.9 - Noninfective gastroenteritis and colitis, unspecified Medications: New omeprazole 20 mg PO DAILY 90 caps 1RF 90 days clindamycin HCl 300 mg PO BID 14 caps 0RF 7 days Patient Instructions: - Take omeprazole as prescribed, 30 minutes before breakfast. - Follow up with gastroenterology as instructed for further evaluation. - Attend the scheduled MRI appointment for further imaging. - Complete the full course of prescribed antibiotics. - Monitor symptoms, and report worsening abdominal pain or new symptoms. - Follow dietary modifications as discussed to identify any potential food triggers. - Return for follow-up in three months to reassess lymphadenopathy.
== END 2025-04-15 08:43 | disposition home or self-care (01) ==
LOC: HO.HMCH 07:50
PROVIDERS: PCP Internal Medicine; Visit Provider Internal Medicine
DX: N83.9 Noninflammatory disorder of ovary, fallopian tube and broad ligament, unspecified (principal); K52.9 Noninfective gastroenteritis and colitis, unspecified; R59.0 Localized enlarged lymph nodes; G43.009 Migraine without aura, not intractable, without status migrainosus

== ENCOUNTER → 2025-04-15 07:49 | Outpatient (BNVA) | payer OTHER, SELFPAY | PROVIDERS: PCP Internal Medicine; Visit Provider Internal Medicine | DX: N83.9 Noninflammatory disorder of ovary, fallopian tube and broad ligament, unspecified (principal); K52.9 Noninfective gastroenteritis and colitis, unspecified; R59.0 Localized enlarged lymph nodes; G43.009 Migraine without aura, not intractable, without status migrainosus | CPT/HCPCS: 99212 ==

== ENCOUNTER 2025-05-08 08:02 | Outpatient (REF) | payer OTHER, SELFPAY ==
[2025-05-08 16:52] LABS: CT PCR NOT DETECTED (Not Detect.); NG PCR NOT DETECTED (Not Detect.)
[2025-05-13 13:02] LABS: HPV Genotype 16 Negative (Negative); HPV Genotype 18 Negative (Negative); HPV High Risk Negative (Negative)
== END 2025-05-08 08:03 | disposition home or self-care (01) ==
LOC: HO.LNP 08:02
PROVIDERS: PCP Internal Medicine; Visit Provider Advanced Practice Midwife
DX: Z01.419 Encounter for gynecological examination (general) (routine) without abnormal findings (principal); N94.2 Vaginismus; Z20.2 Contact with and (suspected) exposure to infections with a predominantly sexual mode of transmission
CPT/HCPCS: 87491; 87591; 87626; 88175; 99212; 99385; 99459

== ENCOUNTER 2025-05-08 08:02 | Outpatient (AMB) | payer OTHER, SELFPAY ==
--- NOTE | 2025-05-08 08:05 | MHC.OFFVIS ---
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 Surgical repair x2. Had pelvic floor PT after her vaginal delivery. Still has symptoms with the intimacy Regular monthly menses x 2-3HMB/5. Currently is sexually active. She denies vaginal itching or irritation. STI screening offered; she accepts. She tries to eat healthy and stays active with exercise. Denies family history of breast, ovarian or colon cancer. Last pap smear 6 yrs. ago, negative. [facility] Medical History (Updated 05/08/25 @ 09:39 by Irene Rodas CNM) Vaginismus Physical exam Immunization due Pelvic pain in female Acne Migraines Obese Surgical History History of hymenectomy History of wisdom tooth extraction Family History Father History of mitral valve repair Mother Hypothyroid Maternal Grandmother Diabetes Hypertension Paternal Grandfather CVD (cardiovascular disease) Brother In good health Brother In good health Sister In good health Son In good health Social History Housing: Apartment Alcohol intake: never Patient Tobacco Use Status: Never used Tobacco e-Cigarette/Vaping Use: Never Used Second Hand Smoke Exposure: No service: No Current occupational status: employed Current occupational exposures/hazards: No Cognitive needs: No Hearing needs: No Vision needs: No Female Reproductive History Menstrual Duration of menses: 3-5 days Date of last menstrual period: 05/03/25 control method: none Total pregnancies: 2 Full term: 1 Number of Living Children: 1 Ab spontaneous: 1 Review of Systems Const All systems reviewed & are unremarkable except as noted in HPI and below Reports as per HPI Eyes Reports no additional complaints ENT Reports no additional complaints Card Reports no additional complaints Resp Reports no additional complaints GI Reports as per HPI and Reports no additional complaints Reports as per HPI Musc Reports no additional complaints Skin/Breast Reports as per HPI Neuro Reports no additional complaints Psych Reports no additional complaints Endo Reports no additional complaints Eyal/Lymph Reports no additional complaints Aller/Immun Reports no additional complaints Physical Exam Vital Signs: Last Vital Signs BP 110/70 05/08/25 08:07 BMI result Body Mass Index 33.0 Const General: cooperative, healthy appearing, no acute distress, well developed and alert Orientation/consciousness: patient oriented x3 HEENT Head: Yes normal to inspection Eyes General: appearance normal, both eyes and all related structures Neck Neck: Yes normal visual inspection Thyroid: Thyroid normal Chest Chest palpation & inspection: normal inspection of the chest and other (no puckering, dimpling, peau de orange, retraction, discharge, masses) Breast/axilla inspection: normal inspection of the breasts Breast/axilla palpation: normal palpation of the breasts Resp Effort & Inspection: normal respiratory effort GI Inspection: Yes normal to inspection Palpation (GI): Soft to palpation Rectal Exam - Female: deferred Other: Tense with the exam despite culture breathing techniques. General: Yes bladder normal to palpation External Female Exam: normal external appearance and normal appearance of the urethra Speculum Exam - Vagina: normal appearance of the vagina, normal palpation and normal vaginal discharge Speculum Exam - Cervix: normal appearance of the cervix and normal palpation Bimanual exam- vagina & uterus: normal bimanual exam, normal palpation, uterine size normal, bladder normal to palpation, normal palpation and non-tender Bimanual Exam- Adnexa, other: no masses Skin General skin exam: no rashes or lesions noted Rashes: no rashes Neuro General: patient oriented x3 Cognition (Neuro): normal cognition Extrem General: Yes normal to inspection Psych Attitude: cooperative Thought process: Normal thought process present Assessment & Plan Assessment & Plan (1) Vaginismus: Comment: surgical repair x 2. Code(s): N94.2 - Vaginismus Category: Medical Plan: Counseled regarding options, consider pelvic floor therapy again, sex therapist, suggested book reading list provided. The patient expressed understanding and agreement with the plan of care. All of her questions and concerns were addressed to the best of my ability. Total time I personally spent on visit and management today: ?15 minutes. Time spent included review of pertinent office notes in the electronic health record; review of laboratory and imaging results; review of personal family medical history; performing physical exam; discussing diagnosis and plan of care with the patient; documenting the encounter in the EMR. (2) Encounter for well woman exam with routine gynecological exam: Code(s): Z01.419 - Encounter for gynecological examination (general) (routine) without abnormal findings Category: Medical Plan Discussed: Current recommendations for pap smears per ASCCP guidelines. Pap smear obtained. GC and chlamydia obtained await results for plan of care. Breast awareness and periodic breast exams. Maintain a healthy lifestyle including a well balanced diet and routine exercise. Call sooner with any changes for menstrual cycles. Report any heavy prolonged bleeding patterns. Declines control is open to a future . Initiate vitamins for the prevention of neural tube defects, offered prescription patient declines prefers to buy [id number]. Advised to complete primary care's labs to include the CBC and TSH. Patient verbalizes understanding and agrees to the plan of care. She was given opportunity to ask questions and all questions were answered to the best of my ability. RTO in one year for annual security compliance engineer examination. This note is constructed using voice recognition software. While every effort has been made to ensure accuracy, rail assembler errors may have been included. Orders: Orders CT NG by PCR Today Z20.2 - Contact with and (suspected) exposure to infections with a predominantly sexual mode of transmission HPV High risk Today Z01.419 - Encounter for gynecological examination (general) (routine) without abnormal findings Pap Smear Today Z01.419 - Encounter for gynecological examination (general) (routine) without abnormal findings Referrals Pelvic Oracle Brm Developer Referral N94.2 - Vaginismus Coding Level of Care Code New Pt Level 2 (77769) New Pt Prev Care 18-39yr(35665 Diagnoses Vaginismus N94.2 Encounter for well woman exam with routine gynecological exam Z01.419
--- OUTSIDE RECORDS SUMMARY | 2025-05-08 08:06 | XMS_ITS | Clinical Summary ---
Author Organization [facility] Address [address] [place] [id number] Phone Care Team Providers Care Manager College Name Role Phone Unavailable Primary Care Provider [...] patient's age to complete this topic Insurance [facility] PUBLIC DIRECT
[2025-05-08 08:07] VITALS: BP 110/70; BMI 33.0
== END 2025-05-08 08:52 | disposition home or self-care (01) ==
LOC: HO.HWS 08:03
PROVIDERS: PCP Internal Medicine; Visit Provider Advanced Practice Midwife
DX: N94.2 Vaginismus (principal); Z01.419 Encounter for gynecological examination (general) (routine) without abnormal findings
CPT/HCPCS: 99212; 99385; 99459

== ENCOUNTER → 2025-05-10 15:58 | Outpatient (BNV) | payer OTHER, SELFPAY | PROVIDERS: PCP Internal Medicine; Visit Provider Radiology Diagnostic Radiology | DX: N83.291 Other ovarian cyst, right side (principal) | CPT/HCPCS: 72197 ==

== ENCOUNTER 2025-05-10 15:59 | Outpatient (REF) | payer OTHER, SELFPAY ==
--- NOTE | ~2025-05-10 | MR_ITS ---
EXAMINATION: MR PELVIS WITHOUT AND WITH CONTRAST CLINICAL INFORMATION: No inflammatory disorder of ovary, fallopian tube and broad ligament. COMPARISON: MRI dated October 08, 2016. TECHNIQUE: Multiplanar, multisequence MRI pelvis without and following IV gadolinium based contrast, total of 7.5 cc, without reported immediate complications. FINDINGS: The uterus measures 5 x 4 x 7 cm in retroversion flexion position. Junctional zone measures 6 mm maximum thickness. Heterogeneous enhancement without enhancing mass. Nabothian cyst in the cervix. No enhancing mass in the cervix. Right ovary: 3 x 2 x 2 cm. There is a focal, 1.7 cm intrinsic hyperintense T1 fat-saturated nonenhancing signal abnormality with a focal note fat-sat hyperintense T1 signal. There are few scattered follicles. Left ovary: 3 x 2 x 3 cm with scattered follicles. No enhancing mass. No gross signal abnormality. No free fluid in the cul-de-sac. No bone marrow signal abnormality in the included pelvis. MR/MR pelvis wo/w con IMPRESSION: 1.7 cm dermoid, right adnexa. No uterine fibroid. Uterus is in retroversion flexion position. Electronically signed by: Luis Armando Whitney MD 05/13/2025 11:25 AM EDT
--- OUTSIDE RECORDS SUMMARY | 2025-05-10 16:05 | XMS_ITS | Clinical Summary ---
Author Organization [facility] Address [address] [place] [id number] Phone Care Team Providers Care Youth Officer Name Role Phone Unavailable Primary Care Provider [...] patient's age to complete this topic Insurance [facility] PUBLIC DIRECT
[2025-05-10] MEDS: gadobutroL 7.5 ML VIAL IVPUSH (16:41)
== END 2025-05-10 16:00 | disposition home or self-care (01) ==
LOC: HO.MRI 15:59
PROVIDERS: PCP Internal Medicine; Visit Provider Internal Medicine
DX: N83.9 Noninflammatory disorder of ovary, fallopian tube and broad ligament, unspecified (principal)
CPT/HCPCS: 72197; A9585

== ENCOUNTER 2025-06-10 11:58 | Outpatient (REF) | payer OTHER, SELFPAY ==
--- NOTE | ~2025-06-10 | XR_ITS ---
EXAMINATION: XR LUMBAR SPINE 4 OR MORE VIEWS CLINICAL INFORMATION: M54.50 - Low back pain, unspecified COMPARISON: None available. TECHNIQUE: AP, both oblique, and lateral views of the lumbar spine. Lateral view of the lumbosacral junction. FINDINGS: Mild dextrocurvature of the lumbar spine. No subluxation. The vertebral bodies and posterior elements appear normal. Mild narrowing of the L5-S1 disc space. Mild sclerotic changes of the bilateral sacroiliac joints, right greater than left. The paraspinal soft tissues appear normal. XR/XR lumbar spine 4V min IMPRESSION: 1. No acute findings or significant degenerative changes along the lumbar spine. 2. Findings suggestive of sacroiliitis or osteoarthritic changes of the sacroiliac joints, right greater than left. Electronically signed by: Betty Willingham MD 06/10/2025 02:03 PM EDT
== END 2025-06-10 11:59 | disposition home or self-care (01) ==
LOC: HO.HMGCX 11:58
PROVIDERS: PCP Internal Medicine; Visit Provider Physician Assistant
DX: M54.50 Low back pain, unspecified (principal)
CPT/HCPCS: 72110

== ENCOUNTER 2025-06-10 11:58 | Outpatient (AMB) | payer OTHER, SELFPAY ==
--- NOTE | 2025-06-10 13:01 | MHC.OFFWIV ---
Intake Vital Signs 06/10/25 13:03 Height 5 ft Weight 172 lb BMI 33.6 BP 112/76 Blood Pressure Location Lt brachial Position Sitting Pulse 71 Pulse Source Pulse Oximeter Temp 98.1 F Temp Source Oral Pulse Oximetry (%) 99 Intake Visit Reasons: EP Severe lower back pain Intake Note: presents with low back pain after bending down to pick something up this morning Patient Tobacco Use Status: Never used Tobacco Allergies Sulfa (Sulfonamide Antibiotics) Allergy (Intermediate, Verified 06/10/25 13:05) hives topiramate Adverse Reaction (Intermediate, Verified 06/10/25 13:05) eye changes Do you need a note to return to daycare/school/sports/work: Yes Return to daycare/school/sports/work/other note: work HPI HPI Comments History of Present Illness Details History - The patient is a 34-year-old female presenting with acute low back pain. - The pain began this morning while the patient was getting ready for work, following an incident where she bent over without bending her knees. - The pain was described as severe, causing difficulty in breathing due to its intensity. - The patient applied a lidocaine patch and tried warm and cold compresses, but the pain persisted. - She has a history of back pain and sciatica but reports this pain as different from previous episodes. - There is no radiation of pain to the legs, and no numbness, tingling, or weakness in the lower extremities. - No loss of bladder or bowel control was reported. - no numbness or tingling in legs, no weakness in legs Physical Exam General: cooperative, healthy appearing and comfortable, patient oriented x3 Head: Yes normal to inspection and Yes normocephalic General nose exam: Normal external nose present Face and sinus: Yes normal facial exam Effort & Inspection: normal respiratory effort and able to speak in complete sentences Back/spine: no CVA tenderness bilaterally, cervical, thoracic and lumbar spine normal to inspection cervical ROM normal, thoracic ROM normal, lumbar ROM normal no Cervical, thoracic spine tenderness TTP on left low back limping gait [facility] Medical History (Updated 06/10/25 @ 13:14 by Luci Cao PA-C) Vaginismus Physical exam Immunization due Pelvic pain in female Acne Migraines Obese Surgical History History of hymenectomy History of wisdom tooth extraction Family History Father History of mitral valve repair Mother Hypothyroid Maternal Grandmother Diabetes Hypertension Paternal Grandfather CVD (cardiovascular disease) Brother In good health Brother In good health Sister In good health Son In good health Social History Housing: Apartment Alcohol intake: never Patient Tobacco Use Status: Never used Tobacco e-Cigarette/Vaping Use: Never Used Second Hand Smoke Exposure: No service: No Current occupational status: employed Current occupational exposures/hazards: No Cognitive needs: No Hearing needs: No Vision needs: No Review of Systems Const All systems reviewed & are unremarkable except as noted in HPI and below Physical Exam Vital Signs: Last Vital Signs Temp 98.1 F 06/10/25 13:03 Pulse 71 06/10/25 13:03 BP 112/76 06/10/25 13:03 Pulse Ox 99 06/10/25 13:03 BMI result Body Mass Index 33.6 Assessment & Plan Assessment & Plan (1) Low back pain: Code(s): M54.50 - Low back pain, unspecified Qualifiers: Chronicity: acute Back pain laterality: left Sciatica presence: without sciatica Qualified Code(s): M54.50 - Low back pain, unspecified Plan: Patient was informed and verbally consented to the use of an ambient scribe for clinic note documentation during this visit. Acute Low Back Pain - Prescribed meloxicam, an NSAID, to be taken once daily for four days, with instructions to avoid other NSAIDs. - Prescribed cyclobenzaprine, a muscle relaxant, to be taken as needed every eight hours, with the option to increase the dose if necessary to 10mg Q8H PRN. - Advised the use of Tylenol, patches, ice, and heat as adjunctive treatments. - Recommended follow-up if symptoms persist or worsen, with the possibility of physical therapy. - Will get lumbar XR to rule out issues. - Advised if any loss of control of bladder or bowels, to go to the ED. Orders: Orders XR lumbar spine 4V min Today M54.50 - Low back pain, unspecified Medications: New meloxicam do not take other NSAIDS while taking this medication 15 mg PO DAILY PRN 15 tabs 0RF pain, moderate cyclobenzaprine 5 mg PO Q8H PRN 20 tabs 0RF Muscle Spasm Coding Level of Care Code Est Pt Level 4 (29408) Diagnoses Acute left-sided low back pain without sciatica M54.50 Chronicity: acute Back pain laterality: left Sciatica presence: without sciatica
[2025-06-10 13:03] VITALS: BP 112/76; PULSE 71; TEMP 36.7; O2SAT 99; BMI 33.6
--- OUTSIDE RECORDS SUMMARY | 2025-06-10 13:03 | XMS_ITS | Clinical Summary ---
Author Organization [facility] Address [address] [place] [address] Phone Care Team Providers Care Private Investigator Name Role Phone Unavailable Primary Care Provider [...] 80 09/15/2011 12:00 AM EDT Temperature 36.8 C (98.3 F) 09/15/2011 12:00 AM EDT Respiratory Rate - - Oxygen Saturation - [...] 05/17/2021, 04/26/2021 Chlamydia and Gonorrhea Screening 11/28/2024 Influenza Vaccines (#1) 2025 08/03/20 24, 02/02/2019, 09/15/2011, Additional history exists DTaP,Tdap,and Td Vaccines (8 - Td or Tdap) 01/23/2029 01/23/2019, 12/15/2007, 09/18/2002, Additional history exists HIB Vaccines Completed 12/28/1991, 06/30, 03/27/1991, Additional history exists IPV Vaccines Completed 06/27/1995, 02/28, 03/27/1991, Additional history exists MMR Vaccines Completed 06/27/1995, 12/28/1991 Hepatitis B Vaccines Completed 09/14/1999, 05/15/1999, 04/14/1999 Meningococcal Vaccine Completed 12/15/2007 HPV Vaccines Completed 07/18/2008, 02/26, 12/15/2007 Hepatitis A Vaccines Aged Out No long er eligible based on patient's age to complete this topic Men B Vaccine Aged Out No longer elig ible based on patient's age to complete this topic Pneumococcal Vaccine Aged Out No long er eligible based on patient's age to complete this topic Insurance [facility] PUBLIC DIRECT
== END 2025-06-10 13:28 | disposition home or self-care (01) ==
PROVIDERS: PCP Internal Medicine; Visit Provider Physician Assistant
DX: M54.50 Low back pain, unspecified (principal)

== ENCOUNTER → 2025-06-10 13:27 | Outpatient (BNV) | payer OTHER, SELFPAY | PROVIDERS: PCP Internal Medicine; Visit Provider Radiology Body Imaging | DX: M54.50 Low back pain, unspecified (principal) | CPT/HCPCS: 72110 ==

== ENCOUNTER 2025-07-16 08:06 | Outpatient (REF) | payer OTHER, SELFPAY ==
--- NOTE | ~2025-07-16 | US_ITS ---
CLINICAL HISTORY: R59.0 - Localized enlarged lymph nodes f u left neck level II Ultrasound soft tissue neck Comparison: 04/10/2025 Findings: Ultrasound evaluation was performed limited to the soft tissues at level 2 in the area of concern. A solitary lymph node is visualized measuring 1.1 x 0.4 x 0.6 cm in size, significantly decreased since the prior study. The lymph node is normal morphology and has a fatty hilum. Impression: 1. Solitary residual lymph node identified with interval decrease in size. This document has been electronically signed by: Chiqui Lawson MD on 07/17/2025 17:01:43
--- OUTSIDE RECORDS SUMMARY | 2025-07-16 08:31 | XMS_ITS | Clinical Summary ---
Author Organization [facility] Address [address] [place] [address] Phone Care Team Providers Care Powdered Sugar Supervisor Name Role Phone Unavailable Primary Care Provider [...] patient's age to complete this topic Insurance [facility] PUBLIC DIRECT
== END 2025-07-16 08:07 | disposition home or self-care (01) ==
LOC: HO.HMGCX 08:06
PROVIDERS: PCP Internal Medicine; Visit Provider Internal Medicine
DX: R59.0 Localized enlarged lymph nodes (principal)
CPT/HCPCS: 76536

== ENCOUNTER → 2025-07-16 08:07 | Outpatient (BNV) | payer OTHER, SELFPAY | PROVIDERS: PCP Internal Medicine; Visit Provider Radiology Diagnostic Radiology | DX: R59.0 Localized enlarged lymph nodes (principal) | CPT/HCPCS: 76536 ==

== ENCOUNTER 2025-08-29 15:53 | Outpatient (REF) | payer OTHER, SELFPAY ==
[2025-08-29 16:58] LABS: MANUAL DIFF FLAG NO
[2025-08-29 17:29] LABS: Hematocrit 38.3 % (37.0-47.0); Hemoglobin 12.9 g/dl (12.0-16.0); Imm Gran Abs Auto 0.02 X10*3/uL (0.00-0.03); Imm Gran Pct Auto 0.3 % (0.0-0.4); Lymphocytes Absolute Auto 2.6 X10*3/uL (1.2-4.9); Mean Corpuscular HGB Conc 33.7 g/dl (31.0-35.0); Mean Corpuscular Hemoglobin 31.6 pg (27.0-33.0); Mean Corpuscular Volume 93.9 fL (80.0-98.0); NRBC Abs Auto 0.000 X10*3/uL (0.0-0.012); NRBC Pct Auto 0.0 /100WBC (0.0-0.2); Platelet Count 313 X10*3/uL (160-400); Red Blood Count 4.08 X10*6/uL (4.20-5.50); White Blood Count 7.9 X10*3/uL (4.8-10.8)
[2025-08-29 17:50] LABS: Appearance Urine Clear; Glucose Urine UA Negative (Negative); PH 7.0 (5.0-9.0); Specific Gravity - Urine 1.025 (1.005-1.025); UMIC TRIGGER UACC YES
[2025-08-29 17:57] LABS: Alanine Aminotransferase 15 U/L (0-31); Albumin Level 4.5 g/dL (3.5-5.0); Alkaline Phosphatase 60 U/L (39-117); Anion Gap 9 (12-20); Aspartate Amino Transferase 19 U/L (5-31); Blood Urea Nitrogen 14 mg/dL (9-16); Calcium 9.1 mg/dL (8.4-10.2); Carbon Dioxide 28 mmol/L (22-29); Chloride 109 mmol/L (96-108); Estimated Glomerular Filt Rate > 60; Potassium 4.6 mmol/L (3.3-5.1); Sodium 141 mmol/L (135-145); Total Protein 7.5 g/dL (6.5-8.0)
[2025-08-29 18:54] LABS: Erythrocyte Sedimentation Rate 13 MM/HR (0-20)
== END 2025-08-29 15:54 | disposition home or self-care (01) ==
LOC: HO.LAB 15:53
PROVIDERS: PCP Internal Medicine
DX: R00.2 Palpitations (principal); R42 Dizziness and giddiness; R07.2 Precordial pain; H57.13 Ocular pain, bilateral; G43.009 Migraine without aura, not intractable, without status migrainosus; F41.9 Anxiety disorder, unspecified
CPT/HCPCS: 36415; 80053; 81001; 84443; 85025; 85652; 86141

== ENCOUNTER 2025-08-29 15:53 | Outpatient (AMB) | payer OTHER, SELFPAY ==
[2025-08-29 15:56] VITALS: BP 128/72; PULSE 77; RESP 18; TEMP 36.4; O2SAT 98; BMI 34.4
--- NOTE | 2025-08-29 15:56 | A.OFFPC_ITS ---
Vital Signs 08/29/25 15:56 Height 5 ft Weight 176 lb BMI 34.4 BP 128/72 Blood Pressure Location Lt brachial Position Sitting Respiration 18 Pulse 77 Pulse Source Pulse Oximeter Temp 97.5 F Temp Source Temporal Artery Scan Pulse Oximetry (%) 98 Oxygen Delivery Method Room Air Intake Visit Reasons: heart palpitations, dizziness, chest pain Compliance And Control Analyst Required: No Accompanied by: Self / Same As Patient Allergies Sulfa (Sulfonamide Antibiotics) Allergy (Intermediate, Verified 08/29/25 16:08) hives topiramate Adverse Reaction (Intermediate, Verified 08/29/25 16:08) eye changes Medication List - Last Reconciled 08/29/25 by MOHINDER García cyclobenzaprine 5 mg PO Q8H PRN meloxicam 15 mg PO DAILY PRN sumatriptan succinate 50 mg PO Q2-4H PRN 30 days Tobacco use date assessed: 08/29/25 Dental Screening Dental Screen Date: 08/29/25 Did you have a dental visit in the last 12 months?: No Did you have a dental problem in the last 6 months where you did not have access to dental care?: No Was dental information given to patient?: Patient has dentist HPI heart palpitations, dizziness, chest pain HPI Details The patient is a 34-year-old female presenting with heart palpitations, dizziness, and chest pain. The heart palpitations and dizziness have been occurring intermittently over the past two to three weeks, with the patient experiencing significant episodes last night that disrupted her sleep. The palpitations are often accompanied by left arm pain and occasional chest jabs, though there is no current arm pain or numbness. The patient reports experiencing dizzy spells that last less than a second, followed by blurry vision and minor eye pressure, occurring multiple times a day. She has a history of severe migraines, though she has not experienced a headache during these episodes. There is a family history of heart disease, with her father having undergone two mitral valve replacements, and her mother having hyperthyroidism. The patient has previously had her blood work monitored for thyroid issues. The patient has a history of colon inflammation, which was managed by dietary changes, including reducing coffee intake, resulting in symptom improvement. EKG done in office: sinus arrythmia, no ischemia PFSH Medical History Vaginismus Physical exam Immunization due Pelvic pain in female Acne Migraines Obese Surgical History History of hymenectomy History of wisdom tooth extraction Family History Father History of mitral valve repair Mother Hypothyroid Maternal Grandmother Diabetes Hypertension Paternal Grandfather CVD (cardiovascular disease) Brother In good health Brother In good health Sister In good health Son In good health Social History Housing: Apartment Alcohol intake: never Patient Tobacco Use Status: Never used Tobacco e-Cigarette/Vaping Use: Never Used Second Hand Smoke Exposure: No service: No Current occupational status: employed Current occupational exposures/hazards: No Cognitive needs: No Hearing needs: No Vision needs: No Questionnaire Thrive Questionnaire Date Thrive assessed: 11/29/24 I am a: Patient What is your living situation today?: I have a steady place to live Within the past 12 months, did the food you bought not last and you didn't have the money to get more?: Never true Within the past 12 months, did you worry whether your food would run out before you got money to buy more?: Never true Do you have trouble paying for medicines?: No Do you have trouble getting transportation to medical appointments?: No Do you have trouble paying your heating and electricity bill?: No Do you have trouble taking care of your child, family member or friend?: No Do you have trouble with day-to-day activities such as bathing, preparing meals, shopping, managing finances, etc.?: No Are you currently unemployed and looking for a job?: No Are you interested in more education?: No Please select the resources that you would like help with: None Currently or been in a relationship where the following occur: No concerns reported THRIVE Score: 0 HERNÁN-7 AMB Questionnaire HERNÁN-7 Date HERNÁN - 7 assessed: 11/29/24 Source: Developed by Drs. Aidan Dwyer, Krystle Ma, Abiel Tavera and colleagues, with an educational julio c from [employer]. Review of Systems Const Denies body aches, Denies chills, Denies fever(s), Denies headache(s) and Denies poor appetite Eyes Reports no additional complaints, Reports blurry vision (with the dizziness) and Reports other (intermittent pressure behind both eyes) ENT Denies dysphagia, Reports dizziness, Denies headache(s) and Denies odynophagia Card Reports chest pain, Denies syncope, Reports rapid heart rate, Denies edema, Denies irregular heart rhythm, Denies lightheadedness and Denies dyspnea Resp Denies cough and Denies dyspnea GI Denies abdominal pain, Denies constipation, Denies dysphagia, Denies diarrhea, Denies nausea, Denies odynophagia and Denies vomiting Reports no additional complaints Musc Reports no additional complaints and Denies abnormal gait Skin/Breast Reports system reviewed and no additional complaints, except as documented Neuro Denies abnormal gait, Reports dizziness, Denies syncope and Denies headache(s) Psych Reports no additional complaints Physical exam (Primary Care) Vital Signs: Last Vital Signs Temp 97.5 F 08/29/25 15:56 Pulse 77 08/29/25 15:56 Resp 18 08/29/25 15:56 BP 128/72 08/29/25 15:56 Pulse Ox 98 08/29/25 15:56 Oxygen Delivery Method Room Air 08/29/25 15:56 BMI result Body Mass Index 34.4 Tobacco/Smoking Status: Tobacco use Status Tobacco use date assessed 08/29/25 08/29/25 16:03 Patient Tobacco Use Status Never used Tobacco 08/29/25 16:03 e-Cigarette/Vaping Use Never Used 08/29/25 16:03 Thrive Assessment: Date of Thrive Assessment Date Thrive assessed 11/29/24 08/29/25 16:03 Currently or been in a relationship where the following occur: No concerns reported Const General: cooperative, alert and awake Nutritional Appearance: average body habitus Orientation/consciousness: oriented to person, oriented to place, oriented to time and patient oriented x3 Limitations: no limitations HENMT Head: Yes normal to inspection Ears: hearing grossly normal bilaterally General nose exam: Normal external nose present Eyes Pupils: Equal, round and reactive pupils present EOM: EOMs intact bilaterally Neck Neck: Yes normal visual inspection and Yes no lymphadenopathy Thyroid: Thyroid normal Lymphatic: no lymphadenopathy noted Chest Chest palpation & inspection: normal inspection of the chest Resp Effort & Inspection: normal respiratory effort Auscultation: clear to auscultation bilaterally Cardio Rate: regular rate Rhythm: regular rhythm Heart sounds: S1 normal heart sound present, S2 normal heart sound present and no murmurs GI Inspection: Yes normal to inspection Palpation (GI): Soft to palpation and nontender Auscultation: normal bowel sounds Skin General skin exam: no rashes or lesions noted Neuro General: oriented to person, oriented to place, oriented to time, patient oriented x3, no focal motor deficits and CN's II-XI intact bilaterally Cranial nerves: Yes Equal, round and reactive pupils present and Yes Nystagmus not present Motor exam (neuro): 5/5 motor strength present throughout Extrem General: Yes full ROM and No edema Right upper extremity: full ROM Left upper extremity: full ROM Right lower extremity: full ROM; no edema Left lower extremity: full ROM; no edema Psych Appearance: grossly normal Affect: normal affect Attitude: cooperative Thought process: Normal thought process present Coding Level of Care Code Est Pt Level 3 (07807) Diagnoses Precordial pain R07.2 Chest pain type: precordial pain Heart palpitations R00.2 Pain of both eyes H57.13 Laterality: bilateral Dizziness R42 Migraine without aura and without status migrainosus, not intractable G43.009 Migraine type: without aura Status migrainosus presence: without status migrainosus Intractability: not intractable Anxiety F41.9 Time Spent (min) 34 Assessment & Plan Assessment & Plan (1) Chest pain: Code(s): R07.9 - Chest pain, unspecified Category: Medical Qualifiers: Chest pain type: precordial pain Qualified Code(s): R07.2 - Precordial pain Plan: The chest pain, described as occasional jabs, will be monitored alongside the heart palpitations with the Holter monitor. The patient is advised to report any worsening of symptoms or new symptoms such as shortness of breath or increased pain. (2) Heart palpitations: Code(s): R00.2 - Palpitations Category: Medical Plan: The patient will undergo a 7-day Holter monitor to capture any arrhythmias and assess the frequency and nature of the palpitations. An EKG was performed, showing sinus arrhythmia without ischemia, and further blood work will be conducted to rule out thyroid dysfunction. (3) Eye pain: Code(s): H57.10 - Ocular pain, unspecified eye Category: Medical Qualifiers: Laterality: bilateral Qualified Code(s): H57.13 - Ocular pain, bilateral Plan: Possibly this related to the patient migraines, however, she reports that she has not been having migraines. The plan is for the patient to obtain an eye exam to rule out any eye disorders. (4) Dizziness: Code(s): R42 - Dizziness and giddiness Category: Medical Plan: The dizziness will be further evaluated with blood work to check for anemia, electrolytes imbalance, thyroid dysfunction and other potential causes. (5) Migraines: Code(s): G43.909 - Migraine, unspecified, not intractable, without status migrainosus Category: Medical Qualifiers: Migraine type: without aura Status migrainosus presence: without status migrainosus Intractability: not intractable Qualified Code(s): G43.009 - Migraine without aura, not intractable, without status migrainosus Plan: The patient reports a history of migraines but has not experienced them during recent dizzy spells. An eye examination is recommended to rule out any visual triggers for migraines. The patient was encouraged to get an eye exam to further evaluate (6) Anxiety: Code(s): F41.9 - Anxiety disorder, unspecified Category: Medical Plan: Anxiety is considered a potential contributing factor to the patient's symptoms, but it is a diagnosis of exclusion. The patient is encouraged to manage stress through lifestyle modifications and to seek further evaluation if symptoms persist. Orders: Orders TSH reflex Free T4 08/29/25 R00.2 - Palpitations, R07.9 - Chest pain, unspecified, R42 - Dizziness and giddiness Complete Blood Count Auto Diff 08/29/25 R00.2 - Palpitations, R07.9 - Chest pain, unspecified, R42 - Dizziness and giddiness CRP High Sensitivity 08/29/25 R00.2 - Palpitations, R07.9 - Chest pain, unspecified, R42 - Dizziness and giddiness Erythrocyte Sedimentation Rate 08/29/25 R00.2 - Palpitations, R07.9 - Chest pain, unspecified, R42 - Dizziness and giddiness Comprehensive Met. Panel 08/29/25 R00.2 - Palpitations, R07.9 - Chest pain, unspecified, R42 - Dizziness and giddiness UA CC w/rflx Micro + Cult 08/29/25 R00.2 - Palpitations, R07.9 - Chest pain, unspecified, R42 - Dizziness and giddiness ECG 7 day holter monitor 08/29/25 R00.2 - Palpitations
--- OUTSIDE RECORDS SUMMARY | 2025-08-29 16:53 | XMS_ITS | Encounter Summary ---
Author Organization [facility] Address [address] [place] [address] Phone Care Team Providers Care Insurance Inspector Name Role Phone Chelsey Rankin DO Primary Care Provider [phone] Encounter Details Date Type Department Care Team (Late st Contact Info) Description 05/26/2012 Documentation [facility] [place] [address] [place] [address] Family Medicine, Physician [address] [place], [place] [phone] Social History Tobacco Use Types Packs/Day Years [...] on filedocumented in this encounter Care Teams Insurance Inspector Relationship Specialty Start Date End Date Chelsey Rankin DO [address] [place] [id number] PCP - General 07/08/17 12/30/21 documented as of this encounter
--- OUTSIDE RECORDS SUMMARY | 2025-08-29 16:53 | XMS_ITS | Encounter Summary ---
Author Organization [facility] Address [address] [place] [address] Phone Care Team Providers Care Topography Technician Name Role Phone Chelsey Rankin DO Primary Care Provider [phone] Encounter Details Date Type Department Care Team (Late st Contact Info) Description 09/16/2011 Documentation [facility] [place] Medicine [address] [place] [address] Family Medicine, Physician [address] [place], [place] [phone] Social History Tobacco Use Types Packs/Day Years [...] on filedocumented in this encounter Care Teams Topography Technician Relationship Specialty Start Date End Date Chelsey Rankin DO [address] [place] [address] PCP - General 07/08/17 12/30/21 documented as of this encounter
--- OUTSIDE RECORDS SUMMARY | 2025-08-29 16:53 | XMS_ITS | Encounter Summary ---
Author Organization [facility] Address [address] [place] [address] Phone Care Team Providers Care Blocker And Polisher Gold Wheel Name Role Phone Chelsey Rankin DO Primary Care Provider [phone] Encounter Details Date Type Department Care Team (Late st Contact Info) Description 09/16/2011 Documentation [facility] [place] [address] [place] [address] Family Medicine, Physician [address] [place], [place] [phone] Social History Tobacco Use Types Packs/Day Years [...] on filedocumented in this encounter Care Teams Blocker And Polisher Gold Wheel Relationship Specialty Start Date End Date Chelsey Rankin DO [address] [place] [phone] PCP - General 07/08/17 12/30/21 documented as of this encounter
--- OUTSIDE RECORDS SUMMARY | 2025-08-29 16:53 | XMS_ITS | Clinical Summary ---
Author Organization [facility] Address [address] [place] [address] Phone Care Team Providers Care Stripper Apprentice Name Role Phone Unavailable Primary Care Provider [...] of 2 - 13+ 2-dose series) 2003 Chlamydia and Gonorrhea Screening 11/28/2024 Influenza Vaccines (#1) 2025 08/03/20 24, 02/02/2019, 09/15/2011, Additional history exists COVID-19 Vaccine ( season) 2025 12/31/2021, 05/17/2021, 04/26/2021 DTaP,Tdap,and Td Vaccines (8 - Td or [...] patient's age to complete this topic Insurance [facility] PUBLIC DIRECT
--- OUTSIDE RECORDS SUMMARY | 2025-08-29 16:53 | XMS_ITS | Encounter Summary ---
Author Organization [facility] Address [address] [place] [address] Phone Care Team Providers Care Barrel Washer Name Role Phone Chelsey Rankin DO Primary Care Provider [phone] Encounter Details Date Type Department Care Team (Late st Contact Info) Description 10/27/2012 Documentation [facility] [place] Medicine [address] [place] [address] Family Medicine, Physician [address] [place], [place] [phone] Social History Tobacco Use Types Packs/Day Years [...] on filedocumented in this encounter Care Teams Barrel Washer Relationship Specialty Start Date End Date Chelsey Rankin DO [address] [place] [address] PCP - General 07/08/17 12/30/21 documented as of this encounter
--- OUTSIDE RECORDS SUMMARY | 2025-08-29 16:54 | XMS_ITS | Encounter Summary ---
Author Organization [facility] Address [address] [place] [address] Phone Care Team Providers Care Field Crew Chief Name Role Phone Chelsey Rankin DO Primary Care Provider [phone] Encounter Details Date Type Department Care Team (Late st Contact Info) Description 07/14/2017 Conversion Encounter [facility] [address] [place] [address] Social History Tobacco Use Types Packs/Day Years [...] on filedocumented in this encounter Care Teams Field Crew Chief Relationship Specialty Start Date End Date Chelsey Rankin DO [address] [place] [address] PCP - General 07/08/17 12/30/21 documented as of this encounter
--- OUTSIDE RECORDS SUMMARY | 2025-08-29 16:54 | XMS_ITS | Encounter Summary ---
Author Organization [facility] Address [address] [place] [address] Phone Care Team Providers Care Film Library Clerk Name Role Phone Chelsey Rankin DO Primary Care Provider [phone] Encounter Details Date Type Department Care Team (Late st Contact Info) Description 09/16/2011 Documentation [facility] [place] Family Medicine [address] [place] [address] Family Medicine, Physician [address] [place], [place] [phone] Social History Tobacco Use Types Packs/Day Years [...] on filedocumented in this encounter Care Teams Film Library Clerk Relationship Specialty Start Date End Date Chelsey Rankin DO [address] [place] [id number] PCP - General 07/08/17 12/30/21 documented as of this encounter
--- OUTSIDE RECORDS SUMMARY | 2025-08-29 16:54 | XMS_ITS | Encounter Summary ---
Author Organization [facility] Address [address] [place] [address] Phone Care Team Providers Care Prototype Assembler Electronics Name Role Phone Chelsey Rankin DO Primary Care Provider [phone] Encounter Details Date Type Department Care Team (Late st Contact Info) Description 04/06/2010 Documentation [facility] [place] [address] [place] [address] Family Medicine, Physician [address] [place], [place] [phone] Social History Tobacco Use Types Packs/Day Years [...] on filedocumented in this encounter Care Teams Prototype Assembler Electronics Relationship Specialty Start Date End Date Chelsey Rankin DO [address] [place] [address] PCP - General 07/08/17 12/30/21 documented as of this encounter
== END 2025-08-29 16:44 | disposition home or self-care (01) ==
LOC: HO.HMCH 15:54
PROVIDERS: PCP Internal Medicine
DX: R07.2 Precordial pain (principal); R00.2 Palpitations; H57.13 Ocular pain, bilateral; R42 Dizziness and giddiness; G43.009 Migraine without aura, not intractable, without status migrainosus; F41.9 Anxiety disorder, unspecified

== ENCOUNTER → 2025-09-16 07:53 | Outpatient (REF) | payer OTHER, SELFPAY ==
--- NOTE | 2025-09-16 07:55 | HM_ITS ---
Conclusion: 1. Patient was monitored for total period of 7 days 2. Baseline was normal sinus rhythm with average heart of 80 beats per minute 3. No significant pauses noted 4. Occasional PACs noted with total burden of 0.8% 5. Patient marked the counter 3 times with symptoms of palpitations correlating with sinus rhythm MTDD
--- OUTSIDE RECORDS SUMMARY | 2025-09-16 07:56 | XMS_ITS | Encounter Summary ---
Author Organization [facility] Address [address] [place] [address] Phone Care Team Providers Care Bioinformaticist Name Role Phone Chelsey Rankin DO Primary Care Provider Encounter Details Date Type Department Care Team (Late st Contact Info) Description 09/16/2011 Documentation [facility] [place] [address] [place] [address] Family Medicine, Physician [address] [place], [place] [phone] Social History Tobacco Use Types Packs/Day Years [...] on filedocumented in this encounter Care Teams Bioinformaticist Relationship Specialty Start Date End Date Chelsey Rankin DO [address] [place] [address] PCP - General 07/08/17 12/30/21 documented as of this encounter
--- OUTSIDE RECORDS SUMMARY | 2025-09-16 07:56 | XMS_ITS | Clinical Summary ---
Author Organization [facility] Address [address] [place] [address] Phone Care Team Providers Care Occupational Therapy Assist Name Role Phone Unavailable Primary Care Provider [...] age to complete this topic Insurance [facility] PUBLIC DIRECT
--- OUTSIDE RECORDS SUMMARY | 2025-09-16 07:56 | XMS_ITS | Encounter Summary ---
Author Organization [facility] Address [address] [place] [address] Phone Care Team Providers Care Supervisor Commissary Production Name Role Phone Chelsey Rankin DO Primary Care Provider [phone] Encounter Details Date Type Department Care Team (Late st Contact Info) Description 05/26/2012 Documentation [facility] [place] [facility] [place] [address] [place] [address] Family Medicine, Physician [address] [place], [place] [phone] Social History Tobacco Use Types Packs/Day Years [...] filedocumented in this encounter Care Teams Supervisor [employer] Relationship Specialty Start Date End Date Chelsey Rankin DO [address] [place] [phone] PCP - General 07/08/17 12/30/21 documented as of this encounter
--- OUTSIDE RECORDS SUMMARY | 2025-09-16 07:56 | XMS_ITS | Encounter Summary ---
Author Organization [facility] Address [address] [place] [address] Phone Care Team Providers Care Access Manager Name Role Phone Chelsey Rankin DO Primary Care Provider [phone] Encounter Details Date Type Department Care Team (Late st Contact Info) Description 10/27/2012 Documentation [facility] [place] Family Medicine [address] [place] [address] Family Medicine, Physician [address] [place], [place] [phone] Social History Tobacco Use Types Packs/Day Years [...] on filedocumented in this encounter Care Teams Access Manager Relationship Specialty Start Date End Date Chelsey Rankin DO [address] [place] [address] PCP - General 07/08/17 12/30/21 documented as of this encounter
--- OUTSIDE RECORDS SUMMARY | 2025-09-16 07:56 | XMS_ITS | Encounter Summary ---
Author Organization [facility] Address [address] [place] [address] Phone Care Team Providers Care Snow Removing Supervisor Name Role Phone Chelsey Rankin DO Primary Care Provider [phone] Encounter Details Date Type Department Care Team (Late st Contact Info) Description 04/06/2010 Documentation [facility] [place] Family Medicine [address] [place] [address] Family Medicine, Physician [address] [place], [place] [phone] Social History Tobacco Use Types Packs/Day Years [...] on filedocumented in this encounter Care Teams Snow Removing Supervisor Relationship Specialty Start Date End Date Chelsey Rankin DO [address] [place] [address] PCP - General 07/08/17 12/30/21 documented as of this encounter
--- OUTSIDE RECORDS SUMMARY | 2025-09-16 07:56 | XMS_ITS | Encounter Summary ---
Author Organization [facility] Address [address] [place] [address] Phone Care Team Providers Care Commercial Assistant Name Role Phone Chelsey Rankin DO Primary Care Provider [phone] Encounter Details Date Type Department Care Team (Late st Contact Info) Description 07/14/2017 Conversion Encounter [facility] [address] [place] [address] Social History Tobacco Use Types Packs/Day Years [...] on filedocumented in this encounter Care Teams Commercial Assistant Relationship Specialty Start Date End Date Chelsey Rankin DO [address] [place] [address] PCP - General 07/08/17 12/30/21 documented as of this encounter
--- OUTSIDE RECORDS SUMMARY | 2025-09-16 07:56 | XMS_ITS | Encounter Summary ---
Author Organization [facility] Address [address] [place] [address] Phone Care Team Providers Care Child Care Counselor Name Role Phone Chelsey Rankin DO Primary Care Provider [phone] Encounter Details Date Type Department Care Team (Late st Contact Info) Description 09/16/2011 Documentation [facility] [place] [place] Family Medicine [address] [place] [address] Family Medicine, Physician [address] [place], [place] [phone] Social History Tobacco Use Types Packs/Day Years [...] on filedocumented in this encounter Care Teams Child Care Counselor Relationship Specialty Start Date End Date Chelsey Rankin DO [address] [place] [address] PCP - General 07/08/17 12/30/21 documented as of this encounter
--- OUTSIDE RECORDS SUMMARY | 2025-09-16 07:56 | XMS_ITS | Encounter Summary ---
Author Organization [facility] Address [address] [place] [address] Phone Care Team Providers Care Social Sciences Lecturer Name Role Phone Chelsey Rankin DO Primary Care Provider [phone] Encounter Details Date Type Department Care Team (Late st Contact Info) Description 09/16/2011 Documentation [facility] [place] Family Medicine [address] [place] [address] Family Medicine, Physician [address] [place], [place] [phone] Social History Tobacco Use Types Packs/Day Years [...] on filedocumented in this encounter Care Teams Social Sciences Lecturer Relationship Specialty Start Date End Date Chelsey Rankin DO [address] [place] [address] PCP - General 07/08/17 12/30/21 documented as of this encounter
== END ==
LOC: HO.CARD 07:53
PROVIDERS: PCP Internal Medicine
DX: R00.2 Palpitations (principal)
CPT/HCPCS: 93242

== ENCOUNTER → 2025-09-16 07:55 | Outpatient (BNV) | payer OTHER, SELFPAY | PROVIDERS: PCP Internal Medicine; Visit Provider Internal Medicine Cardiovascular Disease | DX: I49.1 Atrial premature depolarization (principal) | CPT/HCPCS: 93244 ==

== ENCOUNTER → 2025-10-08 09:00 | Outpatient (REF) | payer OTHER, SELFPAY ==
--- NOTE | 2025-10-08 09:02 | CA_ITS ---
Acquisition Time: 2025-10-08 09:56:43 Total Exercise Time: 00:06:31 Test Indications: CP,Palpitations Medications: CYCLOBENZAPRINE MELOXICAM SUMATRIPTAN Protocol: SLADE Max HR: 162 BPM 87% of Pred: 185 BPM Max BP: 150/70 mmHG Max Work Load: 7.7 METS Exercise stress test with exercise 6 mins 31 secs of Slade Protocol, achieving 87% MPHR, with reports of mild SOB, no chest pain, without any arrythmias, with normotensive response to exercise. Without any EKG changes meeting criteria for ischemia. In recovery, breathing improved to baseline. Test reviewed with Dr. Padilla. Referred By: Carl Holden Electronically Signed By: Pablo Marcus
== END ==
LOC: HO.CARD 09:00
DX: R07.2 Precordial pain (principal); Z79.1 Long term (current) use of non-steroidal anti-inflammatories (NSAID); Z79.899 Other long term (current) drug therapy
CPT/HCPCS: 93017

== ENCOUNTER → 2025-10-08 09:02 | Outpatient (BNV) | payer OTHER, SELFPAY | DX: R06.02 Shortness of breath (principal) | CPT/HCPCS: 93016; 93018 ==

== ENCOUNTER 2025-11-04 08:46 | Outpatient (REF) | payer OTHER, SELFPAY | END 2025-11-04 08:47 | disposition home or self-care (01) | LOC: HO.LAB 08:46 | PROVIDERS: PCP Internal Medicine | DX: R30.0 Dysuria (principal); N39.0 Urinary tract infection, site not specified | CPT/HCPCS: 87086; 87088; 87186 ==

== ENCOUNTER 2025-11-16 09:07 | Outpatient (AMB) | payer OTHER, SELFPAY ==
--- OUTSIDE RECORDS SUMMARY | 2025-11-12 13:30 | XMS_ITS | Encounter Summary ---
Author Organization [facility] Address [address] [place] [address] Phone Care Team Providers Care Retail Administrative Assistant Name Role Phone Unavailable Primary Care Provider Unavailabl e Reason for Visit * Reason Comments COVID-19 Testing Encounter Details Date Type Department Care Team (Late st Contact Info) Description 11/12/2025 1:30 PM EST Clinical Support [facility] [place] [address] [place] [address] Chayo Manzano LPN [address] [place] [address] Encounter for laboratory testing for COVID-19 virus (Primary Dx) Social History Tobacco Use Types Packs/Day Years Used Date Smoking Tobacco: Never Comments:Never smoker Comments Unknown Sex and Gender Information Value Date Recorded Sex Assigned at Not on file Legal Sex Female 4:42 PM EDT Gender Identity Not on file Sexual Orientation Not on file documented as of this encounter Progress Notes * Chayo Manzano LPN - 11/12/2025 1:30 PM EST Covid compatible sxs. Tested using [employer] [facility]. Labs: Results for orders placed or performed in visit on 11/12/25 POCT COVID-19, Influenza, RSV Nucleic Acid (Amplified Probe) Result Value Ref Range SARS-COV-2 Nucleic Acid Molecular NEGATIVE Negative Influenza A Nucleic Acid Amplified Probe NEGATIVE Negative Influenza B Nucleic Acid Amplified Probe NEGATIVE Negative RSV NEGATIVE Negative Internal Control Pass Pass Present documented in this encounter Plan of Treatment Not on file documented as of this encounter Procedures * Due to [place] state law, this organization might not be sharing sensitive test results. Procedure Name Priority Date/Time Associated Diagnosis Comments POCT COVID-19, INFLUENZA, AND RSV NUCLEIC ACID (AMPLIFIED PROBE) Routine 11/12/2025 1:43 PM EST Encounter for laboratory testing for COVID-19 virus documented in this encounter Results * Due to [place] state law, this organization might not be sharing sensitive test results. * POCT COVID-19, Influenza, RSV Nucleic Acid (Amplified Probe) (11/12/2025 1:43 PM EST) SARS-COV-2 Nucleic Acid Molecular NEGATIVE Negative [facility] Comment:SPC: PASS Influenza A Nucleic Acid Amplified Probe NEGATIVE Negative [facility] Comment:Flu A1: NEG, Flu A2: NEG, SPC: PASS Influenza B Nucleic Acid Amplified Probe NEGATIVE Negative [facility] Comment:SPC: PASS RSV NEGATIVE Negative [facility] Comment:SPC: PASS Internal Control Pass Pass Present [facility] Nasal swab (Nares) 11/12/2025 1:43 PM EST 11/12/2025 1:43 PM EST Narrative [facility] - 11/12/2025 1:43 PM EST [email or web address] ([id number]), [facility] Lot: [id number], Expiry: [id number]: [email or web address] Testing Performed at [facility] [address] [facility], [place] [address] Security Systems Administrator: Chelsey Rankin DO CLIA: [id number] us Marj Stanley MD POINT OF CARE TEST ORDERABLES Final Result [facility] [address] [place] [address] documented in this encounter Visit Diagnoses Diagnosis Encounter for laboratory testing for COVID-19 virus- Primary documented in this encounter
--- OUTSIDE RECORDS SUMMARY | 2025-11-16 09:09 | XMS_ITS | Encounter Summary ---
Author Organization [facility] Address [address] [place] [address] Phone Care Team Providers Care Railway Switch Operator Name Role Phone Chelsey Rankin DO Primary Care Provider Encounter Details Date Type Department Care Team (Late st Contact Info) Description 09/16/2011 Documentation [facility] [place] Family Medicine [address] [place] [address] Family Medicine, Physician [address] [place], [place] [phone] Social History Tobacco Use Types Packs/Day Years [...] on filedocumented in this encounter Care Teams Railway Switch Operator Relationship Specialty Start Date End Date Chelsey Rankin DO [address] [place] [address] PCP - General 07/08/17 12/30/21 documented as of this encounter
--- OUTSIDE RECORDS SUMMARY | 2025-11-16 09:09 | XMS_ITS | Encounter Summary ---
Author Organization [facility] Address [address] [place] [address] Phone Care Team Providers Care Surgical Garment Assembler Name Role Phone Chelsey Rankin DO Primary Care Provider [phone] Encounter Details Date Type Department Care Team (Late st Contact Info) Description 10/27/2012 Documentation [facility] [place] Family Medicine [address] [place] [address] Family Medicine, Physician [address] [place], [place] [phone] Social History Tobacco Use Types Packs/Day Years [...] on filedocumented in this encounter Care Teams Surgical Garment Assembler Relationship Specialty Start Date End Date Chelsey Rankin DO [address] [place] [address] PCP - General 07/08/17 12/30/21 documented as of this encounter
--- OUTSIDE RECORDS SUMMARY | 2025-11-16 09:09 | XMS_ITS | Encounter Summary ---
Author Organization [facility] Address [address] [place] [address] Phone Care Team Providers Care Executive Vice President Of Sales Name Role Phone Chelsey Rankin DO Primary Care Provider [phone] Encounter Details Date Type Department Care Team (Late st Contact Info) Description 09/16/2011 Documentation [facility] [place] Family Medicine [address] [place] [address] Family Medicine, Physician [address] [place], [place] [phone] Social History Tobacco Use Types Packs/Day Years [...] on filedocumented in this encounter Care Teams Executive Vice President Of Sales Relationship Specialty Start Date End Date Chelsey Rankin DO [address] [place] [address] PCP - General 07/08/17 12/30/21 documented as of this encounter
--- OUTSIDE RECORDS SUMMARY | 2025-11-16 09:09 | XMS_ITS | Encounter Summary ---
Author Organization [facility] Address [address] [place] [address] Phone Care Team Providers Care Wharf Labourer Name Role Phone Chelsey Rankin DO Primary Care Provider [phone] Encounter Details Date Type Department Care Team (Late st Contact Info) Description 04/06/2010 Documentation [facility] [place] [address] [place] [address] Family Medicine, Physician [address] [place], [place] [phone] Social History Tobacco Use Types Packs/Day Years [...] on filedocumented in this encounter Care Teams Wharf Labourer Relationship Specialty Start Date End Date Chelsey Rankin DO [address] [place] [address] PCP - General 07/08/17 12/30/21 documented as of this encounter
--- OUTSIDE RECORDS SUMMARY | 2025-11-16 09:09 | XMS_ITS | Clinical Summary ---
Author Organization [facility] Address [address] [place] [address] Phone Care Team Providers Care Teaching Aide Name Role Phone Unavailable Primary Care Provider Unavailabl e Allergies Active Allergy Reactions Criticality Noted Date Comments Sulfa Antibiotics 08/05/2022 Other reaction(s): Rash all over body Encounters Date Type Department Care Team Description 11/12/2025 1:30 PM EST Clinical Support [address] [address] Chayo Manzano LPN Encounter for laboratory testing [...] complete this topic Procedures * Due to [facility] law, this organization might not be sharing sensitive test results. Procedure Name Priority Date/Time Associated Diagnosis Comments POCT COVID-19, INFLUENZA, AND RSV NUCLEIC ACID (AMPLIFIED PROBE) Routine 11/12/2025 1:43 PM EST Encounter for laboratory testing for COVID-19 virus from Last 3 Months Results * Due to [employer] law, this organization might not be sharing sensitive test results. * POCT COVID-19, Influenza, RSV Nucleic Acid (Amplified Probe) (11/12/2025 1:43 PM EST) SARS-COV-2 Nucleic Acid Molecular NEGATIVE Negative [facility] Comment:SPC: PASS Influenza A Nucleic Acid Amplified Probe NEGATIVE Negative [facility] Comment:Flu A1: NEG, Flu A2: NEG, SPC: PASS Influenza B Nucleic Acid Amplified Probe NEGATIVE Negative [facility] Comment:SPC: PASS RSV NEGATIVE Negative [facility] Comment:SPC: PASS Internal Control Pass Pass Present [facility] Nasal swab (Nares) 11/12/2025 1:43 PM EST 11/12/2025 1:43 PM EST Narrative [facility] - 11/12/2025 1:43 PM EST [email or web address] ([id number]), [facility] Lot: [id number], Expiry: [id number]: [email or web address] Testing Performed at [address], [place] [address] Railway Shunter: Chelsey Rankin DO CLIA: [id number] Marj Stanley MD POINT OF CARE TEST ORDERABLES Final Result [facility] [address] [place] [address] from Last 3 Months Insurance [facility]
--- OUTSIDE RECORDS SUMMARY | 2025-11-16 09:09 | XMS_ITS | Encounter Summary ---
Author Organization [facility] Address [address] [place] [address] Phone Care Team Providers Care Systems Operator Name Role Phone Chelsey Rankin DO Primary Care Provider [phone] Encounter Details Date Type Department Care Team (Late st Contact Info) Description 09/16/2011 Documentation [facility] [place] Family Medicine [address] [place] [address] Family Medicine, Physician [address] [place], [place] [phone] Social History Tobacco Use Types Packs/Day Years [...] on filedocumented in this encounter Care Teams Systems Operator Relationship Specialty Start Date End Date Chelsey Rankin DO [address] [place] [address] PCP - General 07/08/17 12/30/21 documented as of this encounter
--- OUTSIDE RECORDS SUMMARY | 2025-11-16 09:09 | XMS_ITS | Encounter Summary ---
Author Organization [facility] Address [address] [place] [address] Phone Care Team Providers Care Boat Outfitter Name Role Phone Chelsey Rankin DO Primary Care Provider [phone] Encounter Details Date Type Department Care Team (Late st Contact Info) Description 07/14/2017 Conversion Encounter [facility] [address] [place] [address] Social History Tobacco Use Types Packs/Day Years [...] on filedocumented in this encounter Care Teams Boat Outfitter Relationship Specialty Start Date End Date Chelsey Rankin DO [address] [place] [address] PCP - General 07/08/17 12/30/21 documented as of this encounter
--- OUTSIDE RECORDS SUMMARY | 2025-11-16 09:09 | XMS_ITS | Encounter Summary ---
Author Organization [facility] Address [address] [place] [address] Phone Care Team Providers Care Infection Control Nurse Name Role Phone Chelsey Rankin DO Primary Care Provider [phone] Encounter Details Date Type Department Care Team (Late st Contact Info) Description 05/26/2012 Documentation [facility] [place] Family Medicine [address] [place] [address] Family Medicine, Physician [address] [place], [place] [phone] Social History Tobacco Use Types Packs/Day Years [...] on filedocumented in this encounter Care Teams Infection Control Nurse Relationship Specialty Start Date End Date Chelsey Rankin DO [address] [place] [address] PCP - General 07/08/17 12/30/21 documented as of this encounter
[2025-11-16 09:49] VITALS: BP 120/84; PULSE 90; RESP 16; TEMP 36.8; O2SAT 100; BMI 33.6
--- NOTE | 2025-11-16 09:49 | AM.OFFWIN_ITS ---
Intake Vital Signs 11/16/25 09:49 Height 5 ft Weight 172 lb BMI 33.6 BP 120/84 Blood Pressure Location Lt brachial Position Sitting Respiration 16 Pulse 90 Pulse Source Pulse Oximeter Temp 98.3 F Temp Source Oral Pulse Oximetry (%) 100 Oxygen Delivery Method Room Air Intake Visit Reasons: EP Cough, sore throat, fever Intake Note: Pt is here today c/o cough,S/T and fever x5days Patient Tobacco Use Status: Never used Tobacco General Clerk Required: No Allergies Sulfa (Sulfonamide Antibiotics) Allergy (Intermediate, Verified 11/16/25 10:11) hives topiramate Adverse Reaction (Intermediate, Verified 11/16/25 10:11) eye changes Medication List - Last Reconciled 11/16/25 by RICH OsbornP- sumatriptan succinate 50 mg PO Q2-4H PRN 30 days HPI HPI Comments History of Present Illness Details History of Present Illness The patient is a 35 year old female presenting with a cough, sore throat, and fever for 5 days. Acute Bronchitis and Pharyngitis: - The patient's illness began 5 days ago , starting on a Tuesday with a dry sore throat. - On Tuesday, her symptoms progressed to include pain with swallowing, talking, and ear pain. - She was seen by another physician who diagnosed her with acute pharyngitis and performed a strep swab for culture, from which she has not received results. - She initially felt some improvement wi th seea-gtq-hwjurqo remedies, but yesterday her symptoms worsened with the onset of severe congestion and a cough productive of thick phlegm. - She has been using throat sprays and M otrin for symptom management. - Her son was recently ill with pneumoni a and ear infections. Past Medical History - Allergy to sulfa. - Allergy to topiramate. Review of Systems - Constitutional: Reports fever. - HEENT: Reports sore throat, odynophagi a, pain with talking, otalgia, and nasal congestion. - Respiratory: Reports a productive coug h with thick phlegm and pain in her throat upon coughing. Physical Exam General: Well developed, well nourished, in no acute distress. Appears stated age. Appears sick but not toxic Head: Normocephalic, atraumatic. Eyes: Pupils are equal, round and reactive to light and accommodation. Conjunc tivae are clear. Vision grossly normal. Ears: TM intact, mild injection bilat Nose: turbinates erythematous and edematous, maxillary sinus TTP bilat Pharynx: Mild erythema,no exudate, + erythema, managing secretions, no ac adenopathy Lungs: Increased bronchial sounds noted, provoked cough w/ deep breaths, paroxysmal at times, without distress Heart: Regular rate and rhythm. No murmurs, click, rubs or gallops are noted. Skin: Warm, diaphoretic Psych: Mood and affect appropriate Results - Labs: A rapid strep swab performed tod ay was negative. Medical Decision Making The patient is a 35-year-old female presenting with a 5-day course of upper respiratory symptoms, including cough, fever, and pharyngitis, which have progressed to include a productive cough and congestion. Physical examination revealed increased bronchial sounds, which is consistent with a diagnosis of acute bronchitis. The patient's lower lung bases were clear, and a rapid strep test was negative. Notably, her son recently had pneumonia, suggesting a possible exposure to a pathogenic organism. Given the clinical presentation, examination findings, and exposure history, a course of antibiotics is warranted. I will prescribe amoxicillin-clavulanate for broad coverage. To address the bronchospasm and inflammation, an albuterol inhaler and a short course of oral prednisone will also be prescribed to aid in a quicker recovery. Plan 1. Acute Bronchitis - Prescribed albuterol inhaler to help o pen the airway and reduce coughing. - Prescribed amoxicillin-clavulanate (Au gmentin) one tablet twice daily for 7 days, to be taken with food. - Prescribed prednisone one tablet daily for 3 days, to be taken in the morning with food to reduce inflammation. - Advised supportive care, including ollie quate fluid intake and use of pvrn-prz-dfjjriz medications like Tylenol or ibuprofen as needed. - Counseled that the cough may persist f or several weeks, but she should feel better with treatment. - Instructed to follow up if her conditi on worsens or does not improve. Patient Instructions - Three prescriptions have been sent to your pharmacy: an albuterol inhaler, amoxicillin (Augmentin), and prednisone. - Use the albuterol inhaler to help with coughing and to open up your airways. If you are unsure how to use it, please ask the pharmacist. - Take one tablet of amoxicillin-clavula felton (Augmentin) twice a day for seven days. Take it with food to prevent an upset stomach. - Take one tablet of prednisone once a d ay for three days. It is best to take this in the morning with food, as it can disrupt your sleep and cause a stomach ache if taken on an empty stomach. - You may use Tylenol or ibuprofen for p ain and fever. - It is very important to drink plenty o f fluids to avoid dehydration, which can make you feel worse. - Be aware that your cough may last for several weeks, even after you finish treatment. - If you do not feel better after treatm ent or if you feel worse, please make sure to follow up. Consent Patient was informed and verbally consented to the use of an ambient scribe for clinic note documentation during this visit. [facility] Medical History Vaginismus Physical exam Immunization due Pelvic pain in female Acne Migraines Obese Surgical History History of hymenectomy History of wisdom tooth extraction Family History Father History of mitral valve repair Mother Hypothyroid Maternal Grandmother Diabetes Hypertension Paternal Grandfather CVD (cardiovascular disease) Brother In good health Brother In good health Sister In good health Son In good health Social History Housing: Apartment Alcohol intake: never Patient Tobacco Use Status: Never used Tobacco e-Cigarette/Vaping Use: Never Used Second Hand Smoke Exposure: No service: No Current occupational status: employed Current occupational exposures/hazards: No Cognitive needs: No Hearing needs: No Vision needs: No Physical Exam Vital Signs: Last Vital Signs Temp 98.3 F 11/16/25 09:49 Pulse 90 11/16/25 09:49 Resp 16 11/16/25 09:49 BP 120/84 11/16/25 09:49 Pulse Ox 100 11/16/25 09:49 Oxygen Delivery Method Room Air 11/16/25 09:49 BMI result Body Mass Index 33.6 Results AMB Rapid Strep AMB Rapid Strep Negative Last Edit by Iris Liu CMA on 11/16/25 10:00 Results Reviewed Results Reviewed: Laboratory Last Values Strep Scn Rapid Clinic Negative 11/16/25 09:52 Assessment & Plan Assessment & Plan (1) Bronchitis: Code(s): J40 - Bronchitis, not specified as acute or chronic Plan . Orders: Orders AMB Rapid Strep Screen Today Z13.9 - Encounter for screening, unspecified Medications: New amoxicillin-pot clavulanate 875-125 mg 1 tab PO BID 14 tabs 0RF 7 days prednisone 20 mg PO DAILY 3 tabs 0RF albuterol sulfate 90 mcg/actuation 2 puffs inhalation Q6H PRN 8.5 grams 0RF shortness of breath or wheezing 30 days Coding Level of Care Code Est Pt Level 3 (54927) Diagnoses Bronchitis J40
== END 2025-11-16 10:24 | disposition home or self-care (01) ==
PROVIDERS: PCP Internal Medicine; Visit Provider Nurse Practitioner Family
DX: Z13.9 Encounter for screening, unspecified (principal); J40 Bronchitis, not specified as acute or chronic

== ENCOUNTER → 2025-11-16 09:07 | Outpatient (BNVA) | payer OTHER, SELFPAY | PROVIDERS: PCP Internal Medicine; Visit Provider Nurse Practitioner Family | DX: J40 Bronchitis, not specified as acute or chronic (principal) | CPT/HCPCS: 87880 ==